=== PATIENT | female | born 1940 | race Caucasian/White ===

== ENCOUNTER 2016-07-04 16:16 | Inpatient (IN) | payer MEDICARE, OTHER ==
[~2016-07-04] VITALS: Ht 160 cm; Wt 45.0 kg
[~2016-07-04 16:16] MED LIST: CHOL100013 PO; CLOP75TA PO; CRESTOR10 MG PO; FELO10TA PO; MAGN400T22 PO; MULT-658 PO; OLME40TA PO; OMEG1CAP38 PO; UBID1CAP23 PO
[2016-07-04 18:15] LABS: BASO % 1 % (0-3); EOS % 2 % (0-3); HEMATOCRIT 29.7 % (36.0-47.0); HEMOGLOBIN 9.5 g/dL (12.0-15.5); LYMPH # 0.5 x10^3/uL (1.0-4.8); LYMPH % 8 % (24-48); MEAN CORPUSCULAR HEMOGLOBIN 28 pg (25-35); MEAN CORPUSCULAR HGB CONC 32 g/dL (31-37); MEAN CORPUSCULAR VOLUME 89 fL (79-100); MONO % 9 % (0-9); NEUT % 79 % (31-73); PLATELET COUNT 345 x10^3/uL (140-400); RED BLOOD COUNT 3.34 x10^6/uL (3.50-5.40); RED CELL DISTRIBUTION WIDTH 20.2 % (11.5-14.5); WHITE BLOOD COUNT 5.7 x10^3/uL (4.0-11.0)
[2016-07-04 18:25] LABS: CALCIUM 8.9 mg/dL (8.5-10.1); CREATININE 0.7 mg/dL (0.6-1.0); GFR 80.9; POTASSIUM 4.9 mmol/L (3.5-5.1)
[2016-07-04 18:31] LABS: ALBUMIN 2.7 g/dL (3.4-5.0); DIRECT BILIRUBIN 0.1 mg/dL (0.0-0.2); TOTAL BILIRUBIN 0.5 mg/dL (0.2-1.0); TOTAL PROTEIN 6.4 g/dL (6.4-8.2)
[2016-07-04] MEDS ORDERED: IPRATRPIUM/ALBUTEROL 0.5/2.5MG 3 ML NEBU. NEB ONE (19:00)
[2016-07-04 19:10] LABS: ANISOCYTOSIS MOD; PLT ESTIMATE ADEQUATE (ADEQUATE); POLYCHROMASIA SLIGHT
--- NOTE | 2016-07-04 19:43 | PHYS DOC ---
Past Medical History Past Medical History: CAD, Cancer, COPD, High Cholesterol, Hypertension, Other Additional Past Medical Histor: BREAST CA,LUNG CANCER, Past Surgical History: Other Additional Past Surgical Histo: PT POOR HISTORIAN Alcohol Use: None Drug Use: None Adult General Chief Complaint Chief Complaint: DYSPNEA/RESPIRATOY DISTRESS HPI HPI 68-year-old female presenting to the emergency department today after being referred here for low oxygen saturation. She has a history of lung cancer and recently received radiation therapy to the chest. She complains of worsening shortness of breath that is worse with exertion. Worse in the morning. No alleviating factors present. Nonradiating. She denies chest pain or abdominal pain. Review of systems is negative for chest pain fevers chills cough. All other review of systems is negative unless otherwise noted in history of present illness. Review of Systems Review of Systems SEE ABOVE. Current Medications Current Medications Current Medications Medications (Trade) Dose Ordered Sig/Eli Start Time Stop Time Status Last Admin Dose Admin Albuterol/ Ipratropium (Duoneb) 3 ml 1X ONCE 07/04/16 19:00 07/04/16 19:01 DC 07/04/16 19:09 3 ML Morphine Sulfate 2 mg PRN Q2HR PRN 07/04/16 19:45 07/05/16 19:44 Ondansetron HCl (Zofran) 4 mg PRN Q8HRS PRN 07/04/16 19:45 07/05/16 19:44 Allergies Allergies Allergies Coded Allergies Type Severity Reaction Last Updated Verified Iodine and Iodide Containing Produc Allergy Intermediate 04/29/16 Yes ampicillin Allergy Intermediate 04/29/16 Yes sulfamethoxazole Allergy Intermediate 04/29/16 Yes trimethoprim Allergy Intermediate 04/29/16 Yes Physical Exam Physical Exam Constitutional: Well developed, well nourished, no acute distress, non-toxic appearance. HENT: Normocephalic, atraumatic, bilateral external ears normal, oropharynx moist, no oral exudates, nose normal. [] Eyes: PERRLA, EOMI, conjunctiva normal, no discharge. Neck: Normal range of motion, no tenderness, supple, no stridor. [] Cardiovascular:Heart rate regular rhythm, no murmur Lungs & Thorax: No wheezing or crackles present. Abdomen: Bowel sounds normal, soft, no tenderness, no masses, no pulsatile masses. [] Skin: Warm, dry, no erythema, no rash. Back: No tenderness, no CVA tenderness. [] Extremities: No tenderness, no cyanosis, no clubbing, ROM intact, no edema. Neurologic: Alert and oriented X 3, normal motor function, normal sensory function, no focal deficits noted. [] Psychologic: Affect normal, judgement normal, mood normal. [] Current Patient Data Vital Signs Vital Signs Date Time Temp Pulse Resp B/P Pulse Ox O2 Delivery O2 Flow Rate FiO2 07/04/16 19:09 96 Nasal Cannula 2.0 07/04/16 16:36 98.5 102 22 171/76 98.5 Lab Values Laboratory Tests Test 07/04/16 17:50 White Blood Count 5.7x10^3/uL (4.0-11.0) Red Blood Count 3.34x10^6/uL (3.50-5.40) L Hemoglobin 9.5g/dL (12.0-15.5) L Hematocrit 29.7% (36.0-47.0) L Mean Corpuscular Volume 89fL (79-100) Mean Corpuscular Hemoglobin 28pg (25-35) Mean Corpuscular Hemoglobin Concent 32g/dL (31-37) Red Cell Distribution Width 20.2% (11.5-14.5) H Platelet Count 345x10^3/uL (140-400) Neutrophils (%) (Auto) 79% (31-73) H Lymphocytes (%) (Auto) 8% (24-48) L Monocytes (%) (Auto) 9% (0-9) Eosinophils (%) (Auto) 2% (0-3) Basophils (%) (Auto) 1% (0-3) Neutrophils # (Auto) 4.5x10^3uL (1.8-7.7) Lymphocytes # (Auto) 0.5x10^3/uL (1.0-4.8) L Monocytes # (Auto) 0.5x10^3/uL (0.0-1.1) Eosinophils # (Auto) 0.1x10^3/uL (0.0-0.7) Basophils # (Auto) 0.0x10^3/uL (0.0-0.2) Platelet Estimate Adequate (ADEQUATE) Polychromasia Slight Anisocytosis Mod Sodium Level 139mmol/L (136-145) Potassium Level 4.9mmol/L (3.5-5.1) Chloride Level 99mmol/L (98-107) Carbon Dioxide Level 35mmol/L (21-32) H Anion Gap 5 (6-14) L Blood Urea Nitrogen 23mg/dL (7-20) H Creatinine 0.7mg/dL (0.6-1.0) Estimated GFR (Cockcroft-Gault) 80.9 Glucose Level 91mg/dL (70-99) Calcium Level 8.9mg/dL (8.5-10.1) Total Bilirubin 0.5mg/dL (0.2-1.0) Direct Bilirubin 0.1mg/dL (0.0-0.2) Aspartate Amino Transferase (AST) 35U/L (15-37) Alanine Aminotransferase (ALT) 49U/L (14-59) Alkaline Phosphatase 75U/L (46-116) Troponin I Quantitative < 0.017ng/mL (0.000-0.055) GN-Pov-P-Type Natriuretic Peptide 2670pg/mL (0-449) H Total Protein 6.4g/dL (6.4-8.2) Albumin 2.7g/dL (3.4-5.0) L Lipase 119U/L (73-393) Laboratory Tests 07/04/16 17:50 Laboratory Tests 07/04/16 17:50 EKG EKG [] EKG shows sinus rhythm with a tachycardic rate. Butler is normal. ST segments congruent. Intervals within normal limits. Radiology/Procedures Radiology/Procedures [] Chest x-ray shows no obvious infiltrate or pneumothorax. Diffuse radiopacification present possibly representing fibrosis Course & Med Decision Making Course & Med Decision Making Pertinent Labs and Imaging studies reviewed. (See chart for details) [] 68-year-old female with a history of lung cancer status post radiation to the chest presents emergency Department with hypoxia seen in clinic and referred here. The patient was placed on 2 L nasal cannula which brought her oxygen saturation up. Otherwise she was hypertensive afebrile with mild tachycardia. Physical exam showed no wheezing in the lungs. Chest x-ray showed no acute infiltrate or pneumothorax. Probable chronic changes. EKG mild tachycardia otherwise unremarkable. Blood work obtained which showed mild anemia elevated proBNP otherwise mildly uremic. Troponin negative. Given the patient's new oxygen requirement, the patient was admitted to our hospital for further evaluation workup and care. Possibly the patient's presentation is consistent with radiation pneumonitis. Oral prednisone administered prior to admission. Dragon Disclaimer Dragon Disclaimer This electronic medical record was generated, in whole or in part, using a voice recognition dictation system. Departure Departure Impression: Primary Impression: Hypoxia Additional Impression: Dyspnea Disposition: ADMITTED INPATIENT Admitting Physician: Other (REUSCH) Condition: STABLE Referrals: RENE MILLIGAN (PCP) Problem Qualifiers CONRADO CHARLTON MD Jul 04, 2016 19:43
[2016-07-04] MEDS ORDERED: ONDANSETRON PF 4 MG/2 ML VIAL. IV PRN (19:45)
[2016-07-04] MEDS ORDERED: MORPHINE SULFATE 2 MG/ML DISP.SYRIN. IV PRN (19:45)
[2016-07-04] MEDS ORDERED: CLOP75TA PO (23:02)
[2016-07-04] MEDS ORDERED: NYST1000 PO (23:03)
[2016-07-04] MEDS ORDERED: ESOM40CA PO (23:04)
[2016-07-04] MEDS ORDERED: OXYC5CAP3 PO (23:04)
[2016-07-04] MEDS ORDERED: LIDO20SO PO (23:06)
[2016-07-04] MEDS ORDERED: FENT1PAT13 TD (23:06)
[2016-07-04] MEDS ORDERED: ALBU2.5V14 NEB (23:07)
[2016-07-04] MEDS ORDERED: ASPI-482 PO (23:08)
[2016-07-04] MEDS ORDERED: CARV3.122 PO (23:08)
[2016-07-04] MEDS ORDERED: IPRA0.2S5 IH (23:10)
[2016-07-04] MEDS ORDERED: SENN-37 PO (23:10)
[2016-07-04] MEDS ORDERED: Magic Mouthwash SWSW (23:15)
[2016-07-04 23:55] VITALS: BP 159/73
[2016-07-05] MEDS: MORPHINE IR 15 MG TABLET PO PRN ×2 (00:22→08:47)
--- NOTE | 2016-07-05 01:32 | HP ---
ADMIT DATE: 07/05/2016 CHIEF COMPLAINT: Hypoxia. HISTORY OF PRESENT ILLNESS: The patient is a 76-year-old woman who had been diagnosed with nonsmall cell lung carcinoma recently and had just completed radiation treatment to her right lower lobe about 4 weeks ago. She has significant swallowing difficulties relating to this with severe pain in her lower side of her sternal area with swallowing. She was seen by her oncologist today and was found significantly hypoxic and therefore referred to the Emergency Room for further workup. The patient relates that she has a bronchitic type cough ever since radiation. However, in the past couple of days, she became more short of breath, especially with minimal exertion. She denies any recent fevers, chills, no sick contacts and no new pain. She has lost significant amounts of weight due to her swallowing difficulties. PAST MEDICAL HISTORY: Nonsmall cell lung carcinoma as above. FAMILY HISTORY: Essentially noncontributory. SOCIAL HISTORY: , living by herself. Quit smoking, children close by. ALLERGIES: IODINE, AMPICILLIN, SULFA AND TRIMETHOPRIM. HOME MEDICATIONS: Reconciled with MAR. REVIEW OF SYSTEMS: Positive as per HPI. Rest of organ system review is negative. PHYSICAL EXAMINATION: VITAL SIGNS: From today show a blood pressure of 137/63, heart rate of 92, respiratory rate at 16, she is afebrile. GENERAL: This is a 76-year-old, malnourished appearing woman, alert and oriented, no acute distress, very pleasant. HEENT: Shows no scleral icterus. LUNGS: Clear to auscultation bilaterally without any rales or wheezes. HEART: Regular rate and rhythm. ABDOMEN: Positive bowel sounds, soft, nontender. EXTREMITIES: Show no edema. SKIN: Warm, soft and dry without any rash. LABORATORY DATA: CBC from today show a WBC of 5.7, hemoglobin 9.5 and platelets of 345, BUN and creatinine of 23 and 0.7, normal electrolytes, CO2 at 35. ProBNP 2670. Initial troponin is negative. Albumin at 2.7. Chest x-ray obtained tonight and interpreted by myself shows mild reticular haziness over the right lower half of her lungs. ASSESSMENT AND PLAN: The patient is a 76-year-old woman with nonsmall cell lung carcinoma, recently completed radiation to her right lower lobe, now presenting with hypoxia. Her cough, this may be a bronchitis. She relates that she actually had been on a steroid taper and just finished her last dose yesterday. My suspicion, however, is that this may be radiation pneumonitis. We will start her on steroids and monitor her respiratory status lipids. We will consult Dr. Mcnally for further guidance A main issue; however, is her poor p.o. intake with significant weight loss. I have discussed with her that she needs to increase her p.o. intake significantly. Pain which I suspect is secondary to radiation is keeping her from eating solids, she will have to replace this with liquid or soft supplements such as Boost Breeze or puddings 5-6 a day would be the appropriate amount. For her pain, the oxycodone 10 that she has been taking at home does not seem to too sufficient control. We will switch her to MS-IR 15 mg. She also has a fentanyl 12 mcg per hour patch. Prophylaxis will be instituted with Lovenox. PPI will be necessary given the use of steroids. WILLI AGUAYO MD DR: JOLLY/nts JOB#: [id number] / [id number] OSIRIS
[2016-07-05 03:15] VITALS: BP 131/62
[2016-07-05 05:51] LABS: BASO % 1 % (0-3); EOS % 5 % (0-3); HEMATOCRIT 25.7 % (36.0-47.0); HEMOGLOBIN 8.6 g/dL (12.0-15.5); LYMPH # 0.6 x10^3/uL (1.0-4.8); LYMPH % 15 % (24-48); MEAN CORPUSCULAR HEMOGLOBIN 29 pg (25-35); MEAN CORPUSCULAR HGB CONC 33 g/dL (31-37); MEAN CORPUSCULAR VOLUME 86 fL (79-100); MONO % 13 % (0-9); NEUT % 66 % (31-73); PLATELET COUNT 310 x10^3/uL (140-400); RED BLOOD COUNT 2.98 x10^6/uL (3.50-5.40); RED CELL DISTRIBUTION WIDTH 20.4 % (11.5-14.5); WHITE BLOOD COUNT 4.4 x10^3/uL (4.0-11.0)
[2016-07-05 06:01] LABS: CALCIUM 8.5 mg/dL (8.5-10.1); CREATININE 0.6 mg/dL (0.6-1.0); GFR 96.7; POTASSIUM 4.2 mmol/L (3.5-5.1)
--- NOTE | 2016-07-05 06:39 | EKG ---
[facility] [address] [place] [address] Test Date: 2016-07-04 Test Time: 17:00:27 Pat Name: BARTOLO OROZCO Department: Room: [facility] Gender: F Evp [place]: : 1940 Requested By: CONRADO CHARLTON Order Number: [id number] Reading MD: Lloyd Strange Measurements Intervals [place] Rate: 96 P: 51 CA: 134 QRS: 0 QRSD: 94 T: 79 QT: 324 QTc: 410 Interpretive Statements SINUS RHYTHM LEFT ATRIAL ABNORMALITY LEFTWARD AXIS QRS(T) CONTOUR ABNORMALITY CONSIDER ANTEROSEPTAL MYOCARDIAL DAMAGE T ABNORMALITY IN HIGH LATERAL LEADS Electronically Signed On 07-21-2016 14:32:05 GAUGE INSPECTOR by Lloyd Strange
[2016-07-05 07:00] VITALS: BP 146/77
--- NOTE | 2016-07-05 07:08 | PDOC ---
PULMONARY PROGRESS NOTES Vitals Vital Signs Date Time Temp Pulse Resp B/P Pulse Ox O2 Delivery O2 Flow Rate FiO2 07/05/16 03:15 98.4 81 18 131/62 97 Nasal Cannula 2.0 98.4 Lungs: Clear Cardiovascular: S1, S2 Abdomen: Soft Extremities: No Edema Labs Laboratory Tests Test 07/04/16 17:50 07/05/16 04:03 White Blood Count 5.7x10^3/uL (4.0-11.0) 4.4x10^3/uL (4.0-11.0) Red Blood Count 3.34x10^6/uL (3.50-5.40) 2.98x10^6/uL (3.50-5.40) Hemoglobin 9.5g/dL (12.0-15.5) 8.6g/dL (12.0-15.5) Hematocrit 29.7% (36.0-47.0) 25.7% (36.0-47.0) Mean Corpuscular Volume 89fL (79-100) 86fL (79-100) Mean Corpuscular Hemoglobin 28pg (25-35) 29pg (25-35) Mean Corpuscular Hemoglobin Concent 32g/dL (31-37) 33g/dL (31-37) Red Cell Distribution Width 20.2% (11.5-14.5) 20.4% (11.5-14.5) Platelet Count 345x10^3/uL (140-400) 310x10^3/uL (140-400) Neutrophils (%) (Auto) 79% (31-73) 66% (31-73) Lymphocytes (%) (Auto) 8% (24-48) 15% (24-48) Monocytes (%) (Auto) 9% (0-9) 13% (0-9) Eosinophils (%) (Auto) 2% (0-3) 5% (0-3) Basophils (%) (Auto) 1% (0-3) 1% (0-3) Neutrophils # (Auto) 4.5x10^3uL (1.8-7.7) 2.9x10^3uL (1.8-7.7) Lymphocytes # (Auto) 0.5x10^3/uL (1.0-4.8) 0.6x10^3/uL (1.0-4.8) Monocytes # (Auto) 0.5x10^3/uL (0.0-1.1) 0.6x10^3/uL (0.0-1.1) Eosinophils # (Auto) 0.1x10^3/uL (0.0-0.7) 0.2x10^3/uL (0.0-0.7) Basophils # (Auto) 0.0x10^3/uL (0.0-0.2) 0.0x10^3/uL (0.0-0.2) Platelet Estimate Adequate (ADEQUATE) Polychromasia Slight Anisocytosis Mod Sodium Level 139mmol/L (136-145) 138mmol/L (136-145) Potassium Level 4.9mmol/L (3.5-5.1) 4.2mmol/L (3.5-5.1) Chloride Level 99mmol/L (98-107) 100mmol/L (98-107) Carbon Dioxide Level 35mmol/L (21-32) 34mmol/L (21-32) Anion Gap 5 (6-14) 4 (6-14) Blood Urea Nitrogen 23mg/dL (7-20) 17mg/dL (7-20) Creatinine 0.7mg/dL (0.6-1.0) 0.6mg/dL (0.6-1.0) Estimated GFR (Cockcroft-Gault) 80.9 96.7 Glucose Level 91mg/dL (70-99) 92mg/dL (70-99) Calcium Level 8.9mg/dL (8.5-10.1) 8.5mg/dL (8.5-10.1) Total Bilirubin 0.5mg/dL (0.2-1.0) Direct Bilirubin 0.1mg/dL (0.0-0.2) Aspartate Amino Transf (AST/SGOT) 35U/L (15-37) Alanine Aminotransferase (ALT/SGPT) 49U/L (14-59) Alkaline Phosphatase 75U/L (46-116) Troponin I Quantitative < 0.017ng/mL (0.000-0.055) QB-Gpz-I-Type Natriuretic Peptide 2670pg/mL (0-449) Total Protein 6.4g/dL (6.4-8.2) Albumin 2.7g/dL (3.4-5.0) Lipase 119U/L (73-393) Laboratory Tests Test 07/04/16 17:50 07/05/16 04:03 White Blood Count 5.7x10^3/uL (4.0-11.0) 4.4x10^3/uL (4.0-11.0) Red Blood Count 3.34x10^6/uL (3.50-5.40) 2.98x10^6/uL (3.50-5.40) Hemoglobin 9.5g/dL (12.0-15.5) 8.6g/dL (12.0-15.5) Hematocrit 29.7% (36.0-47.0) 25.7% (36.0-47.0) Mean Corpuscular Volume 89fL (79-100) 86fL (79-100) Mean Corpuscular Hemoglobin 28pg (25-35) 29pg (25-35) Mean Corpuscular Hemoglobin Concent 32g/dL (31-37) 33g/dL (31-37) Red Cell Distribution Width 20.2% (11.5-14.5) 20.4% (11.5-14.5) Platelet Count 345x10^3/uL (140-400) 310x10^3/uL (140-400) Neutrophils (%) (Auto) 79% (31-73) 66% (31-73) Lymphocytes (%) (Auto) 8% (24-48) 15% (24-48) Monocytes (%) (Auto) 9% (0-9) 13% (0-9) Eosinophils (%) (Auto) 2% (0-3) 5% (0-3) Basophils (%) (Auto) 1% (0-3) 1% (0-3) Neutrophils # (Auto) 4.5x10^3uL (1.8-7.7) 2.9x10^3uL (1.8-7.7) Lymphocytes # (Auto) 0.5x10^3/uL (1.0-4.8) 0.6x10^3/uL (1.0-4.8) Monocytes # (Auto) 0.5x10^3/uL (0.0-1.1) 0.6x10^3/uL (0.0-1.1) Eosinophils # (Auto) 0.1x10^3/uL (0.0-0.7) 0.2x10^3/uL (0.0-0.7) Basophils # (Auto) 0.0x10^3/uL (0.0-0.2) 0.0x10^3/uL (0.0-0.2) Platelet Estimate Adequate (ADEQUATE) Polychromasia Slight Anisocytosis Mod Sodium Level 139mmol/L (136-145) 138mmol/L (136-145) Potassium Level 4.9mmol/L (3.5-5.1) 4.2mmol/L (3.5-5.1) Chloride Level 99mmol/L (98-107) 100mmol/L (98-107) Carbon Dioxide Level 35mmol/L (21-32) 34mmol/L (21-32) Anion Gap 5 (6-14) 4 (6-14) Blood Urea Nitrogen 23mg/dL (7-20) 17mg/dL (7-20) Creatinine 0.7mg/dL (0.6-1.0) 0.6mg/dL (0.6-1.0) Estimated GFR (Cockcroft-Gault) 80.9 96.7 Glucose Level 91mg/dL (70-99) 92mg/dL (70-99) Calcium Level 8.9mg/dL (8.5-10.1) 8.5mg/dL (8.5-10.1) Total Bilirubin 0.5mg/dL (0.2-1.0) Direct Bilirubin 0.1mg/dL (0.0-0.2) Aspartate Amino Transf (AST/SGOT) 35U/L (15-37) Alanine Aminotransferase (ALT/SGPT) 49U/L (14-59) Alkaline Phosphatase 75U/L (46-116) Troponin I Quantitative < 0.017ng/mL (0.000-0.055) FG-Fij-Y-Type Natriuretic Peptide 2670pg/mL (0-449) Total Protein 6.4g/dL (6.4-8.2) Albumin 2.7g/dL (3.4-5.0) Lipase 119U/L (73-393) Medications Active Scripts Medications Dose Route/Sig Days Date Category [Magic Mouthwash] 10 Ml SWSW TID PRN 07/04/16 Reported Senokot-S Tablet (Sennosides/Docusate Sodium) 1 Each Tablet 1 Each PO BID PRN 07/04/16 Reported Ipratropium Prim 0.2 Mg/1 Ml Solution 0.2 Mg IH PRN TID PRN 07/04/16 Reported Aspir 81 (Aspirin) 81 Mg Tablet.dr 81 Mg PO DAILY 07/04/16 Reported Carvedilol 3.125 Mg Tablet 3.125 Mg PO BIDWMEALS 07/04/16 Reported Albuterol Sulfate Conc Neb Soln (Albuterol Sulfate) 2.5 Mg/0.5 Ml Vial.neb 2.5 Mg NEB PRN Q4HRS PRN 07/04/16 Reported FENTANYL 12mcg/hr (Fentanyl) 1 Each Patch.td72 1 Patch TD Q72H 07/04/16 Reported Lidocaine Hcl Viscous (Lidocaine Hcl) 20 Mg/1 Ml Solution 10 Ml PO PRN Q2HRS PRN 07/04/16 Reported Nexium Capsule (Esomeprazole Magnesium) 40 Mg Capsule.dr 40 Mg PO BID 07/04/16 Reported Oxycodone Hcl 5 Mg Capsule 5 Mg PO PRN Q4HRS PRN 07/04/16 Reported Nystatin 100,000 Unit/1 Ml Oral.susp 5 Ml PO QID 07/04/16 Reported Clopidogrel (Clopidogrel Bisulfate) 75 Mg Tablet 75 Mg PO DAILY 07/04/16 Reported Vitamin D (Cholecalciferol (Vitamin D3)) 1,000 Unit Capsule 1 Cap PO DAILY 04/25/16 Reported Crestor (Rosuvastatin Calcium) 10 Mg Tablet 1 Tab PO DAILY 04/25/16 Reported Impression . FULL CONSULT DICTATED AECOPD RULE OUT PE SEE ORDERS THANKS KELSI YOUSSEF MD Jul 05, 2016 07:08
--- NOTE | 2016-07-05 08:30 | RAD ---
INDICATION: chest pain COMPARISON: 04/24/2016 FINDINGS: Single view of chest obtained. Coarsened lung markings throughout the bilateral lungs is again seen. Calcific atherosclerosis. Scoliotic curvature of the spine IMPRESSION: Repeat demonstration of coarsened lung markings throughout the bilateral lungs. A large portion of this is likely secondary to chronic lung disease. No definite focal infiltrate.
[2016-07-05] MEDS: PANTOPRAZOLE 40 MG TABLET. PO SCH (08:47)
[2016-07-05] MEDS: methylPREDNISolone SOD SUCC PF 125 MG/2 ML VIAL. IV SCH ×2 (08:48→21:15)
[2016-07-05] MEDS: IV 1/2 NORMAL SALINE 1,000 ML IV SCH ×2 (08:49→21:15)
[2016-07-05] MEDS ORDERED: PREDNISONE 20 MG TABLET PO SCH (09:00)
[2016-07-05 10:10] LABS: OBC FLU VALID
[2016-07-05 11:00] VITALS: BP 122/59
--- NOTE | 2016-07-05 11:37 | PDOC ---
PROGRESS NOTES Chief Complaint Chief Complaint CC: Hypoxia 1. Non-small cell lung carcinoma History of Present Illness History of Present Illness Pt lying in bed Pt sees oncologist at Pt said she has completed her radiation therapy and the last dose was 4 weeks ago to R lower lobe VSS DW RN Vitals Vitals Vital Signs Date Time Temp Pulse Resp B/P Pulse Ox O2 Delivery O2 Flow Rate FiO2 07/05/16 11:00 98.3 86 18 122/59 96 Nasal Cannula 2.0 98.3 Physical Exam General: Alert, Oriented X3 Heart: Regular rate, No murmurs Lungs: Crackles, Other (Course breath sounds) Abdomen: Soft, No tenderness Extremities: No cyanosis, No edema Skin: No rashes, No breakdown Labs LABS Laboratory Tests Test 07/04/16 17:50 07/05/16 04:03 07/05/16 09:40 White Blood Count 5.7x10^3/uL (4.0-11.0) 4.4x10^3/uL (4.0-11.0) Red Blood Count 3.34x10^6/uL (3.50-5.40) 2.98x10^6/uL (3.50-5.40) Hemoglobin 9.5g/dL (12.0-15.5) 8.6g/dL (12.0-15.5) Hematocrit 29.7% (36.0-47.0) 25.7% (36.0-47.0) Mean Corpuscular Volume 89fL (79-100) 86fL (79-100) Mean Corpuscular Hemoglobin 28pg (25-35) 29pg (25-35) Mean Corpuscular Hemoglobin Concent 32g/dL (31-37) 33g/dL (31-37) Red Cell Distribution Width 20.2% (11.5-14.5) 20.4% (11.5-14.5) Platelet Count 345x10^3/uL (140-400) 310x10^3/uL (140-400) Neutrophils (%) (Auto) 79% (31-73) 66% (31-73) Lymphocytes (%) (Auto) 8% (24-48) 15% (24-48) Monocytes (%) (Auto) 9% (0-9) 13% (0-9) Eosinophils (%) (Auto) 2% (0-3) 5% (0-3) Basophils (%) (Auto) 1% (0-3) 1% (0-3) Neutrophils # (Auto) 4.5x10^3uL (1.8-7.7) 2.9x10^3uL (1.8-7.7) Lymphocytes # (Auto) 0.5x10^3/uL (1.0-4.8) 0.6x10^3/uL (1.0-4.8) Monocytes # (Auto) 0.5x10^3/uL (0.0-1.1) 0.6x10^3/uL (0.0-1.1) Eosinophils # (Auto) 0.1x10^3/uL (0.0-0.7) 0.2x10^3/uL (0.0-0.7) Basophils # (Auto) 0.0x10^3/uL (0.0-0.2) 0.0x10^3/uL (0.0-0.2) Platelet Estimate Adequate (ADEQUATE) Polychromasia Slight Anisocytosis Mod Sodium Level 139mmol/L (136-145) 138mmol/L (136-145) Potassium Level 4.9mmol/L (3.5-5.1) 4.2mmol/L (3.5-5.1) Chloride Level 99mmol/L (98-107) 100mmol/L (98-107) Carbon Dioxide Level 35mmol/L (21-32) 34mmol/L (21-32) Anion Gap 5 (6-14) 4 (6-14) Blood Urea Nitrogen 23mg/dL (7-20) 17mg/dL (7-20) Creatinine 0.7mg/dL (0.6-1.0) 0.6mg/dL (0.6-1.0) Estimated GFR (Cockcroft-Gault) 80.9 96.7 Glucose Level 91mg/dL (70-99) 92mg/dL (70-99) Calcium Level 8.9mg/dL (8.5-10.1) 8.5mg/dL (8.5-10.1) Total Bilirubin 0.5mg/dL (0.2-1.0) Direct Bilirubin 0.1mg/dL (0.0-0.2) Aspartate Amino Transf (AST/SGOT) 35U/L (15-37) Alanine Aminotransferase (ALT/SGPT) 49U/L (14-59) Alkaline Phosphatase 75U/L (46-116) Troponin I Quantitative < 0.017ng/mL (0.000-0.055) ZE-Fsk-I-Type Natriuretic Peptide 2670pg/mL (0-449) Total Protein 6.4g/dL (6.4-8.2) Albumin 2.7g/dL (3.4-5.0) Lipase 119U/L (73-393) Influenza Type A Antigen Negative (NEGATIVE) Influenza Type B Antigen Negative (NEGATIVE) Review of Systems Review of Systems Complains of cough Complains of pain with swallowing Assessment and Plan Assessmemt and Plan Problems Medical Problems: (1) Dyspnea Status: Acute (2) Hypoxia Status: Acute Assessment: CC: Hypoxia 1. Non-small cell lung carcinoma 2. Possible radiation pneumonitis Plan: Continue pain medications Continue steroids, nebs Continue IV fluids Heme/Onc is following Pulm is following Await subspecialty input Prophylaxis - Lovenox, PPI Problems: Comment Review of Relevant I have reviewed the following items mateo (where applicable) has been applied. Labs Laboratory Tests Test 07/04/16 17:50 07/05/16 04:03 07/05/16 09:40 White Blood Count 5.7x10^3/uL (4.0-11.0) 4.4x10^3/uL (4.0-11.0) Red Blood Count 3.34x10^6/uL (3.50-5.40) 2.98x10^6/uL (3.50-5.40) Hemoglobin 9.5g/dL (12.0-15.5) 8.6g/dL (12.0-15.5) Hematocrit 29.7% (36.0-47.0) 25.7% (36.0-47.0) Mean Corpuscular Volume 89fL (79-100) 86fL (79-100) Mean Corpuscular Hemoglobin 28pg (25-35) 29pg (25-35) Mean Corpuscular Hemoglobin Concent 32g/dL (31-37) 33g/dL (31-37) Red Cell Distribution Width 20.2% (11.5-14.5) 20.4% (11.5-14.5) Platelet Count 345x10^3/uL (140-400) 310x10^3/uL (140-400) Neutrophils (%) (Auto) 79% (31-73) 66% (31-73) Lymphocytes (%) (Auto) 8% (24-48) 15% (24-48) Monocytes (%) (Auto) 9% (0-9) 13% (0-9) Eosinophils (%) (Auto) 2% (0-3) 5% (0-3) Basophils (%) (Auto) 1% (0-3) 1% (0-3) Neutrophils # (Auto) 4.5x10^3uL (1.8-7.7) 2.9x10^3uL (1.8-7.7) Lymphocytes # (Auto) 0.5x10^3/uL (1.0-4.8) 0.6x10^3/uL (1.0-4.8) Monocytes # (Auto) 0.5x10^3/uL (0.0-1.1) 0.6x10^3/uL (0.0-1.1) Eosinophils # (Auto) 0.1x10^3/uL (0.0-0.7) 0.2x10^3/uL (0.0-0.7) Basophils # (Auto) 0.0x10^3/uL (0.0-0.2) 0.0x10^3/uL (0.0-0.2) Platelet Estimate Adequate (ADEQUATE) Polychromasia Slight Anisocytosis Mod Sodium Level 139mmol/L (136-145) 138mmol/L (136-145) Potassium Level 4.9mmol/L (3.5-5.1) 4.2mmol/L (3.5-5.1) Chloride Level 99mmol/L (98-107) 100mmol/L (98-107) Carbon Dioxide Level 35mmol/L (21-32) 34mmol/L (21-32) Anion Gap 5 (6-14) 4 (6-14) Blood Urea Nitrogen 23mg/dL (7-20) 17mg/dL (7-20) Creatinine 0.7mg/dL (0.6-1.0) 0.6mg/dL (0.6-1.0) Estimated GFR (Cockcroft-Gault) 80.9 96.7 Glucose Level 91mg/dL (70-99) 92mg/dL (70-99) Calcium Level 8.9mg/dL (8.5-10.1) 8.5mg/dL (8.5-10.1) Total Bilirubin 0.5mg/dL (0.2-1.0) Direct Bilirubin 0.1mg/dL (0.0-0.2) Aspartate Amino Transf (AST/SGOT) 35U/L (15-37) Alanine Aminotransferase (ALT/SGPT) 49U/L (14-59) Alkaline Phosphatase 75U/L (46-116) Troponin I Quantitative < 0.017ng/mL (0.000-0.055) GV-Htn-H-Type Natriuretic Peptide 2670pg/mL (0-449) Total Protein 6.4g/dL (6.4-8.2) Albumin 2.7g/dL (3.4-5.0) Lipase 119U/L (73-393) Influenza Type A Antigen Negative (NEGATIVE) Influenza Type B Antigen Negative (NEGATIVE) Laboratory Tests Test 07/04/16 17:50 07/05/16 04:03 07/05/16 09:40 White Blood Count 5.7x10^3/uL (4.0-11.0) 4.4x10^3/uL (4.0-11.0) Red Blood Count 3.34x10^6/uL (3.50-5.40) 2.98x10^6/uL (3.50-5.40) Hemoglobin 9.5g/dL (12.0-15.5) 8.6g/dL (12.0-15.5) Hematocrit 29.7% (36.0-47.0) 25.7% (36.0-47.0) Mean Corpuscular Volume 89fL (79-100) 86fL (79-100) Mean Corpuscular Hemoglobin 28pg (25-35) 29pg (25-35) Mean Corpuscular Hemoglobin Concent 32g/dL (31-37) 33g/dL (31-37) Red Cell Distribution Width 20.2% (11.5-14.5) 20.4% (11.5-14.5) Platelet Count 345x10^3/uL (140-400) 310x10^3/uL (140-400) Neutrophils (%) (Auto) 79% (31-73) 66% (31-73) Lymphocytes (%) (Auto) 8% (24-48) 15% (24-48) Monocytes (%) (Auto) 9% (0-9) 13% (0-9) Eosinophils (%) (Auto) 2% (0-3) 5% (0-3) Basophils (%) (Auto) 1% (0-3) 1% (0-3) Neutrophils # (Auto) 4.5x10^3uL (1.8-7.7) 2.9x10^3uL (1.8-7.7) Lymphocytes # (Auto) 0.5x10^3/uL (1.0-4.8) 0.6x10^3/uL (1.0-4.8) Monocytes # (Auto) 0.5x10^3/uL (0.0-1.1) 0.6x10^3/uL (0.0-1.1) Eosinophils # (Auto) 0.1x10^3/uL (0.0-0.7) 0.2x10^3/uL (0.0-0.7) Basophils # (Auto) 0.0x10^3/uL (0.0-0.2) 0.0x10^3/uL (0.0-0.2) Platelet Estimate Adequate (ADEQUATE) Polychromasia Slight Anisocytosis Mod Sodium Level 139mmol/L (136-145) 138mmol/L (136-145) Potassium Level 4.9mmol/L (3.5-5.1) 4.2mmol/L (3.5-5.1) Chloride Level 99mmol/L (98-107) 100mmol/L (98-107) Carbon Dioxide Level 35mmol/L (21-32) 34mmol/L (21-32) Anion Gap 5 (6-14) 4 (6-14) Blood Urea Nitrogen 23mg/dL (7-20) 17mg/dL (7-20) Creatinine 0.7mg/dL (0.6-1.0) 0.6mg/dL (0.6-1.0) Estimated GFR (Cockcroft-Gault) 80.9 96.7 Glucose Level 91mg/dL (70-99) 92mg/dL (70-99) Calcium Level 8.9mg/dL (8.5-10.1) 8.5mg/dL (8.5-10.1) Total Bilirubin 0.5mg/dL (0.2-1.0) Direct Bilirubin 0.1mg/dL (0.0-0.2) Aspartate Amino Transf (AST/SGOT) 35U/L (15-37) Alanine Aminotransferase (ALT/SGPT) 49U/L (14-59) Alkaline Phosphatase 75U/L (46-116) Troponin I Quantitative < 0.017ng/mL (0.000-0.055) WO-Gcp-M-Type Natriuretic Peptide 2670pg/mL (0-449) Total Protein 6.4g/dL (6.4-8.2) Albumin 2.7g/dL (3.4-5.0) Lipase 119U/L (73-393) Influenza Type A Antigen Negative (NEGATIVE) Influenza Type B Antigen Negative (NEGATIVE) Medications Current Medications Albuterol/ Ipratropium (Duoneb) 3 ml 1X ONCE NEB Last administered on 19:09; Start 07/04/16 at 19:00; Stop 07/04/16 at 19:01; Status DC Ondansetron HCl (Zofran) 4 mg PRN Q8HRS PRN IV NAUSEA/VOMITING; Start 07/04/16 at 19:45; Stop 07/05/16 at 19:44 Morphine Sulfate 2 mg PRN Q2HR PRN IV PAIN; Start 07/04/16 at 19:45; Stop 07/05 at 19:44 Prednisone (Prednisone) 20 mg DAILY PO ; Start 07/05/16 at 09:00; Stop 07/05/16 at 09:00; Status DC Pantoprazole Sodium (Protonix) 40 mg DAILYAC PO Last administered on 07/05/16 08:47; Start 07/05/16 at 07:30 Morphine Sulfate 15 mg 15 mg PRN Q4HRS PRN PO PAIN Last administered on 08:47; Start 07/04/16 at 23:45 Sodium Chloride (Iv Sodium Chloride 0.45%) 1,000 ml @ 75 mls/hr [id number] IV Last administered on 07/05/16 08:49; Start 07/05/16 at 07:15 Methylprednisolone Sodium Succinate (Solu-Medrol 125mg Vial) 60 mg BID IV Last administered on 07/05/16 08:48; Start 07/05/16 at 09:00 Active Scripts Active Reported [Magic Mouthwash] 10 Ml SWSW TID PRN Senokot-S Tablet (Sennosides/Docusate Sodium) 1 Each Tablet 1 Each PO BID PRN Ipratropium [place] 0.2 Mg/1 Ml Solution 0.2 Mg IH PRN TID PRN Aspir 81 (Aspirin) 81 Mg Tablet.dr 81 Mg PO DAILY Carvedilol 3.125 Mg Tablet 3.125 Mg PO BIDWMEALS Albuterol Sulfate Conc Neb Soln (Albuterol Sulfate) 2.5 Mg/0.5 Ml Vial.neb 2.5 Mg NEB PRN Q4HRS PRN FENTANYL 12mcg/hr (Fentanyl) 1 Each Patch.td72 1 Patch TD Q72H Lidocaine Hcl Viscous (Lidocaine Hcl) 20 Mg/1 Ml Solution 10 Ml PO PRN Q2HRS PRN Nexium Capsule (Esomeprazole Magnesium) 40 Mg Capsule.dr 40 Mg PO BID Oxycodone Hcl 5 Mg Capsule 5 Mg PO PRN Q4HRS PRN Nystatin 100,000 Unit/1 Ml Oral.susp 5 Ml PO QID Clopidogrel (Clopidogrel Bisulfate) 75 Mg Tablet 75 Mg PO DAILY Vitamin D (Cholecalciferol (Vitamin D3)) 1,000 Unit Capsule 1 Cap PO DAILY Crestor (Rosuvastatin Calcium) 10 Mg Tablet 1 Tab PO DAILY Vitals/I & O Vital Sign - Last 24 Hours 07/04/16 07/04/16 07/04/16 07/04/16 16:36 17:30 18:38 19:09 Temp 98.5 98.5 Pulse 102 100 96 Resp 22 16 16 B/P 171/76 155/75 149/70 Pulse Ox 99 100 96 96 O2 Delivery Nasal Cannula Nasal Cannula Nasal Cannula Nasal Cannula O2 Flow Rate 2 2 2 2.0 07/04/16 07/04/16 07/04/16 07/04/16 19:38 20:38 21:38 23:55 Temp 98.5 98.5 Pulse 96 96 92 91 Resp 16 16 16 18 B/P 142/64 122/55 137/63 159/73 Pulse Ox 100 98 98 97 O2 Delivery Nasal Cannula Nasal Cannula Nasal Cannula Room Air O2 Flow Rate 2 2 2 07/04/16 07/05/16 07/05/16 07/05/16 23:55 00:22 01:07 03:15 Temp 98.5 98.4 98.5 98.4 Pulse 91 81 Resp 18 18 B/P 159/73 131/62 Pulse Ox 97 97 O2 Delivery Nasal Cannula Nasal Cannula Nasal Cannula Nasal Cannula O2 Flow Rate 2.0 2.0 2.0 2.0 07/05/16 07/05/16 07/05/16 07/05/16 07:00 08:47 09:47 11:00 Temp 98.3 98.3 98.3 98.3 Pulse 87 86 Resp 18 B/P 146/77 122/59 Pulse Ox 96 96 96 96 O2 Delivery Nasal Cannula Nasal Cannula Nasal Cannula O2 Flow Rate 2.0 2.0 2.0 Intake and Output 07/04/16 07/04/16 07/05/16 15:00 23:00 07:00 Intake Total 100 ml Balance 100 ml CASTMARTA,NIAL K III DO Jul 05, 2016 11:37
[2016-07-05] MEDS: MORPHINE SULFATE 4 MG/ML DISP.SYRIN. IV PRN ×2 (12:55→15:16)
[2016-07-05] MEDS ORDERED: FENTANYL 25MCG/HR PATCH. TD SCH (13:00)
--- NOTE | 2016-07-05 14:09 | RAD ---
INDICATION: SHORTNESS OF AIR, HYPOXIA COMPARISON: 07/04/2016 TECHNIQUE: 5.5 mCi of Tc99m MAA and 12 mCi of Xe-133 administered and ventilation as well as perfusion images were obtained. FINDINGS: There is some patchy defects seen within the bilateral lungs. No definite mismatch defects are seen on the anterior or posterior images but some of the defects are only well seen on the oblique and lateral imaging therefore cannot evaluate whether they are matched or not on ventilation. IMPRESSION: Overall intermediate probability of pulmonary embolus.
[2016-07-05 15:00] VITALS: BP 122/62
[2016-07-05] MEDS ORDERED: BISACODYL 10 MG SUPP.RECT PR PRN (18:15)
[2016-07-05] MEDS: HYDROMORPHONE 2 MG/ML VIAL. IV PRN ×2 (18:18→21:16)
[2016-07-05 19:05] VITALS: BP 115/62
[2016-07-05] MEDS ORDERED: MAGN400T3 PO (22:07)
[2016-07-05] MEDS ORDERED: OXYCODONE IR 5 MG TABLET. PO PRN (22:15)
[2016-07-05] MEDS ORDERED: MAGIC MOUTHWASH SWSW PRN (22:15)
[2016-07-05] MEDS ORDERED: NON FORMULARY ITEM (Albuterol Sulfate (Albuterol Sulfate Conc Neb Soln) 2.5 MG) NEB PRN (22:15)
[2016-07-05] MEDS ORDERED: LIDOCAINE 2% VISCOUS 100 ML BOTTLE. MC PRN (22:15)
[2016-07-05] MEDS ORDERED: ALBUTEROL SULFATE 2.5 MG/3 ML NEBU. NEB PRN (22:45)
[2016-07-05 23:05] VITALS: BP 141/80
--- NOTE | 2016-07-06 01:33 | CONS ---
DATE OF CONSULTATION: 07/05/2016 ATTENDING PHYSICIAN: Dr. Gates. REASON FOR CONSULTATION: The patient seen in pulmonary consultation at the request of Dr. Gates for hypoxemia, shortness of air and history of lung cancer. HISTORY OF PRESENT ILLNESS: The patient is a 76-year-old female who is known to me from a previous hospitalization. She was hospitalized back in April. At that time, she had an abnormal CT of the chest revealing 2 spiculated masses on the right side. She was scheduled to undergo a VATS with lymph node sampling. The patient was on Plavix at that time. Plavix was discontinued. She was due to follow up in the outpatient department. For some reason why the patient presented to [facility], was worked up and diagnosed with nonsmall cell lung cancer. She underwent radiation therapy. She completed radiation to the right lower lobe approximately 4 weeks ago. She presented with difficulty swallowing, desaturation. I was asked to see her in consultation. The patient has a cough, mostly nonproductive. She denies fever, chills. No nausea, vomiting, diarrhea. She is having some weight loss secondary to difficulty with dysphagia. PAST MEDICAL HISTORY: 1. Nonsmall cell lung cancer as diagnosed above. 2. Peripheral vascular disease. 3. Coronary artery disease with low EF. 4. COPD. 5. Carotid stenosis. PAST SURGICAL HISTORY: Status post carotid thrombectomy. SOCIAL HISTORY: She quit tobacco approximately 3-4 months ago. Denies any alcohol intake. REVIEW OF SYSTEMS: As indicated above, otherwise, a 10-point system was reviewed and negative. The patient has awakened multiple times throughout the night short of air for no good reason. She denies any pleuritic pain, no syncope or near syncopal episode. ALLERGIES: Iodine, ampicillin, sulfamethoxazole and trimethoprim. CURRENT MEDICATION: List was reviewed. PHYSICAL EXAMINATION: VITAL SIGNS: Stable. O2 saturation was greater than 92%. HEENT: Eyes, the sclerae were nonicteric. NECK: Jugular venous distention was not elevated. No lymphadenopathy. CHEST: Full expansion. LUNGS: Rhonchi bilaterally with mild wheezes. CARDIOVASCULAR: Regular rate and rhythm with S1, S2, no S3. ABDOMEN: Soft, nontender, and nondistended. EXTREMITIES: No clubbing, cyanosis or edema. NEUROLOGIC: The patient was awake, alert, following commands. A detailed neuro exam was not performed. LABORATORY DATA: White count was normal. Hemoglobin and hematocrit were low. Electrolytes were noted. BUN was normal. Creatinine was normal. BNP was elevated. Albumin upon admission was low. IMPRESSION: 1. Acute respiratory failure, etiology unclear, suspect secondary to acute exacerbation of chronic obstructive pulmonary disease, rule out pulmonary embolus. 2. Recent diagnosis of nonsmall cell lung cancer, status post radiation to the right lower lobe, staging is unknown at this time. 3. Radiation-induced esophagitis leading to dysphagia. 4. Tjxsqcpe-cn-pbfrka protein malnutrition secondary to above. 5. Chronic anemia. 6. Coronary artery disease with low ejection fraction. PLAN: 1. Recommend continue current steroids and IV Protonix. 2. Initiate IV fluids. 3. CT angiogram to rule out PE. 4. A 6-minute walk prior to discharge. 5. Continue nebulized treatments. I do appreciate the privilege in sharing in the patient's care. KELSI YOUSSEF MD DR: MADISYN/yonathan JOB#: [id number] / [id number]
[2016-07-06 03:05] VITALS: BP 113/74
[2016-07-06] MEDS: PANTOPRAZOLE 40 MG TABLET. PO SCH ×4 (05:33→17:33)
[2016-07-06 06:49] LABS: BASO % 0 % (0-3); EOS % 0 % (0-3); HEMATOCRIT 28.6 % (36.0-47.0); HEMOGLOBIN 9.3 g/dL (12.0-15.5); LYMPH # 0.5 x10^3/uL (1.0-4.8); LYMPH % 16 % (24-48); MEAN CORPUSCULAR HEMOGLOBIN 29 pg (25-35); MEAN CORPUSCULAR HGB CONC 33 g/dL (31-37); MEAN CORPUSCULAR VOLUME 87 fL (79-100); MONO % 4 % (0-9); NEUT % 81 % (31-73); PLATELET COUNT 334 x10^3/uL (140-400); RED BLOOD COUNT 3.27 x10^6/uL (3.50-5.40); RED CELL DISTRIBUTION WIDTH 19.7 % (11.5-14.5); WHITE BLOOD COUNT 3.1 x10^3/uL (4.0-11.0)
[2016-07-06 07:03] LABS: CALCIUM 8.8 mg/dL (8.5-10.1); CREATININE 0.5 mg/dL (0.6-1.0); GFR 119.3; POTASSIUM 4.4 mmol/L (3.5-5.1)
[2016-07-06 07:30] VITALS: BP 121/79
[2016-07-06] MEDS: HYDROMORPHONE 2 MG/ML VIAL. IV PRN ×4 (07:39→20:44)
[2016-07-06] MEDS ORDERED: FENTANYL 25MCG/HR PATCH. TD SCH (08:00)
[2016-07-06] MEDS: ASPIRIN ENTERIC COATED 81 MG TABLET.DR. PO SCH (09:23)
[2016-07-06] MEDS: CARVEDILOL 3.125 MG TABLET PO SCH ×2 (09:24→17:27)
[2016-07-06] MEDS: MAGNESIUM OXIDE 400 MG TABLET PO SCH ×3 (09:25→20:44)
[2016-07-06] MEDS: methylPREDNISolone SOD SUCC PF 125 MG/2 ML VIAL. IV SCH ×2 (09:25→20:44)
[2016-07-06] MEDS: NYSTATIN 100,000 UNITS/ML 5 ML ORAL.SUSP. PO SCH ×4 (09:25→20:44)
[2016-07-06] MEDS: CLOPIDOGREL BISULFATE 75 MG TABLET PO SCH (09:27)
[2016-07-06] MEDS: LIDO:MAALOX:BENADRYL 1:1:1 180 ML BOTTLE. PO PRN ×3 (09:28→17:27)
[2016-07-06 10:55] VITALS: BP 128/65
--- NOTE | 2016-07-06 11:55 | PDOC ---
PULMONARY PROGRESS NOTES Vitals Vital Signs Date Time Temp Pulse Resp B/P Pulse Ox O2 Delivery O2 Flow Rate FiO2 07/06/16 10:55 97.9 87 20 128/65 97 Nasal Cannula 2.0 97.9 Lungs: Crackles, Other (Course breath sounds) Cardiovascular: S1, S2 Abdomen: Soft Extremities: No Edema Labs Laboratory Tests Test 07/04/16 17:50 07/05/16 04:03 07/05/16 09:40 07/06/16 06:00 White Blood Count 5.7x10^3/uL (4.0-11.0) 4.4x10^3/uL (4.0-11.0) 3.1x10^3/uL (4.0-11.0) Red Blood Count 3.34x10^6/uL (3.50-5.40) 2.98x10^6/uL (3.50-5.40) 3.27x10^6/uL (3.50-5.40) Hemoglobin 9.5g/dL (12.0-15.5) 8.6g/dL (12.0-15.5) 9.3g/dL (12.0-15.5) Hematocrit 29.7% (36.0-47.0) 25.7% (36.0-47.0) 28.6% (36.0-47.0) Mean Corpuscular Volume 89fL (79-100) 86fL (79-100) 87fL (79-100) Mean Corpuscular Hemoglobin 28pg (25-35) 29pg (25-35) 29pg (25-35) Mean Corpuscular Hemoglobin Concent 32g/dL (31-37) 33g/dL (31-37) 33g/dL (31-37) Red Cell Distribution Width 20.2% (11.5-14.5) 20.4% (11.5-14.5) 19.7% (11.5-14.5) Platelet Count 345x10^3/uL (140-400) 310x10^3/uL (140-400) 334x10^3/uL (140-400) Neutrophils (%) (Auto) 79% (31-73) 66% (31-73) 81% (31-73) Lymphocytes (%) (Auto) 8% (24-48) 15% (24-48) 16% (24-48) Monocytes (%) (Auto) 9% (0-9) 13% (0-9) 4% (0-9) Eosinophils (%) (Auto) 2% (0-3) 5% (0-3) 0% (0-3) Basophils (%) (Auto) 1% (0-3) 1% (0-3) 0% (0-3) Neutrophils # (Auto) 4.5x10^3uL (1.8-7.7) 2.9x10^3uL (1.8-7.7) 2.5x10^3uL (1.8-7.7) Lymphocytes # (Auto) 0.5x10^3/uL (1.0-4.8) 0.6x10^3/uL (1.0-4.8) 0.5x10^3/uL (1.0-4.8) Monocytes # (Auto) 0.5x10^3/uL (0.0-1.1) 0.6x10^3/uL (0.0-1.1) 0.1x10^3/uL (0.0-1.1) Eosinophils # (Auto) 0.1x10^3/uL (0.0-0.7) 0.2x10^3/uL (0.0-0.7) 0.0x10^3/uL (0.0-0.7) Basophils # (Auto) 0.0x10^3/uL (0.0-0.2) 0.0x10^3/uL (0.0-0.2) 0.0x10^3/uL (0.0-0.2) Platelet Estimate Adequate (ADEQUATE) Polychromasia Slight Anisocytosis Mod Sodium Level 139mmol/L (136-145) 138mmol/L (136-145) 134mmol/L (136-145) Potassium Level 4.9mmol/L (3.5-5.1) 4.2mmol/L (3.5-5.1) 4.4mmol/L (3.5-5.1) Chloride Level 99mmol/L (98-107) 100mmol/L (98-107) 97mmol/L (98-107) Carbon Dioxide Level 35mmol/L (21-32) 34mmol/L (21-32) 30mmol/L (21-32) Anion Gap 5 (6-14) 4 (6-14) 7 (6-14) Blood Urea Nitrogen 23mg/dL (7-20) 17mg/dL (7-20) 14mg/dL (7-20) Creatinine 0.7mg/dL (0.6-1.0) 0.6mg/dL (0.6-1.0) 0.5mg/dL (0.6-1.0) Estimated GFR (Cockcroft-Gault) 80.9 96.7 119.3 Glucose Level 91mg/dL (70-99) 92mg/dL (70-99) 152mg/dL (70-99) Calcium Level 8.9mg/dL (8.5-10.1) 8.5mg/dL (8.5-10.1) 8.8mg/dL (8.5-10.1) Total Bilirubin 0.5mg/dL (0.2-1.0) Direct Bilirubin 0.1mg/dL (0.0-0.2) Aspartate Amino Transf (AST/SGOT) 35U/L (15-37) Alanine Aminotransferase (ALT/SGPT) 49U/L (14-59) Alkaline Phosphatase 75U/L (46-116) Troponin I Quantitative < 0.017ng/mL (0.000-0.055) JQ-Qcz-W-Type Natriuretic Peptide 2670pg/mL (0-449) Total Protein 6.4g/dL (6.4-8.2) Albumin 2.7g/dL (3.4-5.0) Lipase 119U/L (73-393) Influenza Type A Antigen Negative (NEGATIVE) Influenza Type B Antigen Negative (NEGATIVE) Laboratory Tests Test 07/06/16 06:00 White Blood Count 3.1x10^3/uL (4.0-11.0) Red Blood Count 3.27x10^6/uL (3.50-5.40) Hemoglobin 9.3g/dL (12.0-15.5) Hematocrit 28.6% (36.0-47.0) Mean Corpuscular Volume 87fL (79-100) Mean Corpuscular Hemoglobin 29pg (25-35) Mean Corpuscular Hemoglobin Concent 33g/dL (31-37) Red Cell Distribution Width 19.7% (11.5-14.5) Platelet Count 334x10^3/uL (140-400) Neutrophils (%) (Auto) 81% (31-73) Lymphocytes (%) (Auto) 16% (24-48) Monocytes (%) (Auto) 4% (0-9) Eosinophils (%) (Auto) 0% (0-3) Basophils (%) (Auto) 0% (0-3) Neutrophils # (Auto) 2.5x10^3uL (1.8-7.7) Lymphocytes # (Auto) 0.5x10^3/uL (1.0-4.8) Monocytes # (Auto) 0.1x10^3/uL (0.0-1.1) Eosinophils # (Auto) 0.0x10^3/uL (0.0-0.7) Basophils # (Auto) 0.0x10^3/uL (0.0-0.2) Sodium Level 134mmol/L (136-145) Potassium Level 4.4mmol/L (3.5-5.1) Chloride Level 97mmol/L (98-107) Carbon Dioxide Level 30mmol/L (21-32) Anion Gap 7 (6-14) Blood Urea Nitrogen 14mg/dL (7-20) Creatinine 0.5mg/dL (0.6-1.0) Estimated GFR (Cockcroft-Gault) 119.3 Glucose Level 152mg/dL (70-99) Calcium Level 8.8mg/dL (8.5-10.1) Medications Active Scripts Medications Dose Route/Sig Days Date Category [Magic Mouthwash] 10 Ml SWSW TID PRN 07/04/16 Reported Senokot-S Tablet (Sennosides/Docusate Sodium) 1 Each Tablet 1 Each PO BID PRN 07/04/16 Reported Ipratropium [place] 0.2 Mg/1 Ml Solution 0.2 Mg IH PRN TID PRN 07/04/16 Reported Aspir 81 (Aspirin) 81 Mg Tablet.dr 81 Mg PO DAILY 07/04/16 Reported Carvedilol 3.125 Mg Tablet 3.125 Mg PO BIDWMEALS 07/04/16 Reported Albuterol Sulfate Conc Neb Soln (Albuterol Sulfate) 2.5 Mg/0.5 Ml Vial.neb 2.5 Mg NEB PRN Q4HRS PRN 07/04/16 Reported FENTANYL 12mcg/hr (Fentanyl) 1 Each Patch.td72 1 Patch TD Q72H 07/04/16 Reported Lidocaine Hcl Viscous (Lidocaine Hcl) 20 Mg/1 Ml Solution 10 Ml PO PRN Q2HRS PRN 07/04/16 Reported Nexium Capsule (Esomeprazole Magnesium) 40 Mg Capsule.dr 40 Mg PO BID 07/04/16 Reported Oxycodone Hcl 5 Mg Capsule 5 Mg PO PRN Q4HRS PRN 07/04/16 Reported Nystatin 100,000 Unit/1 Ml Oral.susp 5 Ml PO QID 07/04/16 Reported Clopidogrel (Clopidogrel Bisulfate) 75 Mg Tablet 75 Mg PO DAILY 07/04/16 Reported Vitamin D (Cholecalciferol (Vitamin D3)) 1,000 Unit Capsule 1 Cap PO DAILY 04/25/16 Reported Crestor (Rosuvastatin Calcium) 10 Mg Tablet 1 Tab PO DAILY 04/25/16 Reported Impression . FULL CONSULT DICTATED AECOPD RULE OUT PE SEE ORDERS THANKS KELSI YOUSSEF MD Jul 06, 2016 11:55
[2016-07-06] MEDS ORDERED: AA 3%/ELECTROLYTE-TPN SOLN/GLY 1,000 ML IV SCH ×2 (12:00→18:41)
[2016-07-06] MEDS ORDERED: PHENYLEPH/MINERAL OIL/PETROLAT RECTAL OINTMENT 28GM TUBE. RC PRN (12:30)
[2016-07-06] MEDS: SENNOSIDES/DOCUSATE 8.6/50MG TABLET. PO PRN ×2 (12:37→22:50)
[2016-07-06] MEDS: CHOLECALCIFEROL (VITAMIN D3) 1,000 UNIT TABLET PO SCH (12:38)
--- NOTE | 2016-07-06 13:48 | CONS ---
DATE OF CONSULTATION: 07/05/2016 CONSULTATION REQUESTED BY: Dr. Lara Gates. REASON FOR CONSULTATION: Lung cancer, stage III B now admitted with dyspnea. HISTORY OF PRESENT ILLNESS: This patient is a 76-year-old female who was initially admitted to [facility] in 04/2016 with exacerbation of COPD. CT scan showed spiculated soft tissue masses in the right upper lobe compatible with neoplastic disease. There was also evidence of substantial hilar and mediastinal lymphadenopathy. She was admitted to [facility] and during that admission, she underwent a bronchoscopy and biopsy on 05/05/2016. This revealed a friable tumor extending from the anterior surface of the distal trachea to terry with additional tumor at the orifice of right upper lobe segmental bronchus. Final pathology from the biopsy revealed squamous cell carcinoma, likely lung primary. She was started on radiation therapy on 05/06/2016 and it was completed on 06/24/2016. Her functional status was poor and hence she did not receive chemotherapy. She noted dyspnea of three to four days' duration. Her oxygen saturation dropped and hence she was sent to the Emergency Room on 07/04/2016 and she was subsequently admitted. She was evaluated by Dr. Melissa Blackwood. The patient underwent a chest x-ray on 07/04/2016 that revealed increased lung markings throughout the lungs bilaterally suggestive of chronic lung disease. She underwent a V/Q scan that revealed intermediate probability for pulmonary embolism on 07/05/2016. PAST MEDICAL HISTORY: Hypertension, coronary artery disease, COPD. SOCIAL HISTORY: She has quit smoking. FAMILY HISTORY: Positive for lung cancer in her brother and father. REVIEW OF SYSTEMS: A 12-point review of system was performed. Pertinent positives are mentioned in the history of presenting illness. Rest of the system review is negative. PHYSICAL EXAMINATION: GENERAL APPEARANCE: The patient is a 76-year-old female who is in no acute cardiorespiratory distress. VITAL SIGNS: Blood pressure 122/62, temperature 98.5. HEENT: Atraumatic, normocephalic. Eyes: No icterus. NECK: Supple. CHEST: Bilaterally symmetrical. No crepitations or rhonchi heard. HEART: S1, S2 normal. ABDOMEN: Soft, nontender. CENTRAL NERVOUS SYSTEM: No focal deficits. LYMPHATICS: No lymphadenopathy. SKIN: No rashes. PSYCHOLOGIC: Mood and affect are appropriate. MUSCULOSKELETAL: No joint effusions. LABORATORY DATA: WBC 4.4, hemoglobin 8.6, platelet count 310. IMPRESSION AND PLAN: 1. Stage III B known small cell lung cancer involving the right upper lobe hilar and mediastinal lymphadenopathy with biopsy on 05/05/2016 revealing squamous cell carcinoma. She underwent radiation therapy from 05/06/2016 to 06/24/2016. Her functional status continues to be poor and hence I did not initiate sequential chemotherapy. I would continue to monitor closely. 2. Dyspnea, may be related to chronic obstructive pulmonary disease, appreciate pulmonary consultation. V/Q scan was intermediate probability for pulmonary embolism. Management per Dr. Blackwood. I discussed with Dr. Blackwood. I also discussed with Dr. Gates. 3. Anemia, chronic due to malignancy and radiation therapy and chronic disease. Hemoglobin is worse at 8.6. There are no signs of bleeding. I will check iron studies, B12 and folic acid levels. ESTHELA AVITIA MD DR: MARY/nts JOB#: [id number] / [id number] MTDD
--- NOTE | 2016-07-06 15:16 | PDOC ---
PULMONARY PROGRESS NOTES Vitals Vital Signs Date Time Temp Pulse Resp B/P Pulse Ox O2 Delivery O2 Flow Rate FiO2 07/06/16 12:36 17 97 Nasal Cannula 2.0 07/06/16 10:55 97.9 87 128/65 97.9 Lungs: Crackles, Other (Course breath sounds) Cardiovascular: S1, S2 Abdomen: Soft Extremities: No Edema Labs Laboratory Tests Test 07/04/16 17:50 07/05/16 04:03 07/05/16 09:40 07/06/16 06:00 White Blood Count 5.7x10^3/uL (4.0-11.0) 4.4x10^3/uL (4.0-11.0) 3.1x10^3/uL (4.0-11.0) Red Blood Count 3.34x10^6/uL (3.50-5.40) 2.98x10^6/uL (3.50-5.40) 3.27x10^6/uL (3.50-5.40) Hemoglobin 9.5g/dL (12.0-15.5) 8.6g/dL (12.0-15.5) 9.3g/dL (12.0-15.5) Hematocrit 29.7% (36.0-47.0) 25.7% (36.0-47.0) 28.6% (36.0-47.0) Mean Corpuscular Volume 89fL (79-100) 86fL (79-100) 87fL (79-100) Mean Corpuscular Hemoglobin 28pg (25-35) 29pg (25-35) 29pg (25-35) Mean Corpuscular Hemoglobin Concent 32g/dL (31-37) 33g/dL (31-37) 33g/dL (31-37) Red Cell Distribution Width 20.2% (11.5-14.5) 20.4% (11.5-14.5) 19.7% (11.5-14.5) Platelet Count 345x10^3/uL (140-400) 310x10^3/uL (140-400) 334x10^3/uL (140-400) Neutrophils (%) (Auto) 79% (31-73) 66% (31-73) 81% (31-73) Lymphocytes (%) (Auto) 8% (24-48) 15% (24-48) 16% (24-48) Monocytes (%) (Auto) 9% (0-9) 13% (0-9) 4% (0-9) Eosinophils (%) (Auto) 2% (0-3) 5% (0-3) 0% (0-3) Basophils (%) (Auto) 1% (0-3) 1% (0-3) 0% (0-3) Neutrophils # (Auto) 4.5x10^3uL (1.8-7.7) 2.9x10^3uL (1.8-7.7) 2.5x10^3uL (1.8-7.7) Lymphocytes # (Auto) 0.5x10^3/uL (1.0-4.8) 0.6x10^3/uL (1.0-4.8) 0.5x10^3/uL (1.0-4.8) Monocytes # (Auto) 0.5x10^3/uL (0.0-1.1) 0.6x10^3/uL (0.0-1.1) 0.1x10^3/uL (0.0-1.1) Eosinophils # (Auto) 0.1x10^3/uL (0.0-0.7) 0.2x10^3/uL (0.0-0.7) 0.0x10^3/uL (0.0-0.7) Basophils # (Auto) 0.0x10^3/uL (0.0-0.2) 0.0x10^3/uL (0.0-0.2) 0.0x10^3/uL (0.0-0.2) Platelet Estimate Adequate (ADEQUATE) Polychromasia Slight Anisocytosis Mod Sodium Level 139mmol/L (136-145) 138mmol/L (136-145) 134mmol/L (136-145) Potassium Level 4.9mmol/L (3.5-5.1) 4.2mmol/L (3.5-5.1) 4.4mmol/L (3.5-5.1) Chloride Level 99mmol/L (98-107) 100mmol/L (98-107) 97mmol/L (98-107) Carbon Dioxide Level 35mmol/L (21-32) 34mmol/L (21-32) 30mmol/L (21-32) Anion Gap 5 (6-14) 4 (6-14) 7 (6-14) Blood Urea Nitrogen 23mg/dL (7-20) 17mg/dL (7-20) 14mg/dL (7-20) Creatinine 0.7mg/dL (0.6-1.0) 0.6mg/dL (0.6-1.0) 0.5mg/dL (0.6-1.0) Estimated GFR (Cockcroft-Gault) 80.9 96.7 119.3 Glucose Level 91mg/dL (70-99) 92mg/dL (70-99) 152mg/dL (70-99) Calcium Level 8.9mg/dL (8.5-10.1) 8.5mg/dL (8.5-10.1) 8.8mg/dL (8.5-10.1) Total Bilirubin 0.5mg/dL (0.2-1.0) Direct Bilirubin 0.1mg/dL (0.0-0.2) Aspartate Amino Transf (AST/SGOT) 35U/L (15-37) Alanine Aminotransferase (ALT/SGPT) 49U/L (14-59) Alkaline Phosphatase 75U/L (46-116) Troponin I Quantitative < 0.017ng/mL (0.000-0.055) XP-Lpt-P-Type Natriuretic Peptide 2670pg/mL (0-449) Total Protein 6.4g/dL (6.4-8.2) Albumin 2.7g/dL (3.4-5.0) Lipase 119U/L (73-393) Influenza Type A Antigen Negative (NEGATIVE) Influenza Type B Antigen Negative (NEGATIVE) Laboratory Tests Test 07/06/16 06:00 White Blood Count 3.1x10^3/uL (4.0-11.0) Red Blood Count 3.27x10^6/uL (3.50-5.40) Hemoglobin 9.3g/dL (12.0-15.5) Hematocrit 28.6% (36.0-47.0) Mean Corpuscular Volume 87fL (79-100) Mean Corpuscular Hemoglobin 29pg (25-35) Mean Corpuscular Hemoglobin Concent 33g/dL (31-37) Red Cell Distribution Width 19.7% (11.5-14.5) Platelet Count 334x10^3/uL (140-400) Neutrophils (%) (Auto) 81% (31-73) Lymphocytes (%) (Auto) 16% (24-48) Monocytes (%) (Auto) 4% (0-9) Eosinophils (%) (Auto) 0% (0-3) Basophils (%) (Auto) 0% (0-3) Neutrophils # (Auto) 2.5x10^3uL (1.8-7.7) Lymphocytes # (Auto) 0.5x10^3/uL (1.0-4.8) Monocytes # (Auto) 0.1x10^3/uL (0.0-1.1) Eosinophils # (Auto) 0.0x10^3/uL (0.0-0.7) Basophils # (Auto) 0.0x10^3/uL (0.0-0.2) Sodium Level 134mmol/L (136-145) Potassium Level 4.4mmol/L (3.5-5.1) Chloride Level 97mmol/L (98-107) Carbon Dioxide Level 30mmol/L (21-32) Anion Gap 7 (6-14) Blood Urea Nitrogen 14mg/dL (7-20) Creatinine 0.5mg/dL (0.6-1.0) Estimated GFR (Cockcroft-Gault) 119.3 Glucose Level 152mg/dL (70-99) Calcium Level 8.8mg/dL (8.5-10.1) Medications Active Scripts Medications Dose Route/Sig Days Date Category [Magic Mouthwash] 10 Ml SWSW TID PRN 07/04/16 Reported Senokot-S Tablet (Sennosides/Docusate Sodium) 1 Each Tablet 1 Each PO BID PRN 07/04/16 Reported Ipratropium [place] 0.2 Mg/1 Ml Solution 0.2 Mg IH PRN TID PRN 07/04/16 Reported Aspir 81 (Aspirin) 81 Mg Tablet.dr 81 Mg PO DAILY 07/04/16 Reported Carvedilol 3.125 Mg Tablet 3.125 Mg PO BIDWMEALS 07/04/16 Reported Albuterol Sulfate Conc Neb Soln (Albuterol Sulfate) 2.5 Mg/0.5 Ml Vial.neb 2.5 Mg NEB PRN Q4HRS PRN 07/04/16 Reported FENTANYL 12mcg/hr (Fentanyl) 1 Each Patch.td72 1 Patch TD Q72H 07/04/16 Reported Lidocaine Hcl Viscous (Lidocaine Hcl) 20 Mg/1 Ml Solution 10 Ml PO PRN Q2HRS PRN 07/04/16 Reported Nexium Capsule (Esomeprazole Magnesium) 40 Mg Capsule.dr 40 Mg PO BID 07/04/16 Reported Oxycodone Hcl 5 Mg Capsule 5 Mg PO PRN Q4HRS PRN 07/04/16 Reported Nystatin 100,000 Unit/1 Ml Oral.susp 5 Ml PO QID 07/04/16 Reported Clopidogrel (Clopidogrel Bisulfate) 75 Mg Tablet 75 Mg PO DAILY 07/04/16 Reported Vitamin D (Cholecalciferol (Vitamin D3)) 1,000 Unit Capsule 1 Cap PO DAILY 04/25/16 Reported Crestor (Rosuvastatin Calcium) 10 Mg Tablet 1 Tab PO DAILY 04/25/16 Reported Impression . 1. Acute respiratory failure, etiology unclear, suspect secondary to acute exacerbation of chronic obstructive pulmonary disease, rule out pulmonary embolus. 2. Recent diagnosis of nonsmall cell lung cancer, status post radiation to the right lower lobe, staging is unknown at this time. 3. Radiation-induced esophagitis leading to dysphagia. 4. Iqhjowob-vx-vzkiln protein malnutrition secondary to above. 5. Chronic anemia. 6. Coronary artery disease with low ejection fraction. Plan . V/Q NOT HELPFUL IN RULING IN OR OUT PE CLINICALLY I DON'T THINK THIS IS RELATED TO PE HOME IN AM OK KELSI YOUSSEF MD Jul 06, 2016 15:16
--- NOTE | 2016-07-06 15:17 | PDOC ---
PROGRESS NOTES Chief Complaint Chief Complaint CC: Hypoxia on admit hypercarbia on admit improved Non-small cell lung carcinoma dysphagia mod severe, malnutrition, BMI 17.6, ALb 2.7 on admit History of Present Illness History of Present Illness she wants home 02, has had a sleep study before, will try 6 min walk Pt lying in bed Pt sees oncologist at Pt said she has completed her radiation therapy and the last dose was 4 weeks ago to R lower lobe VSS DW RN Vitals Vitals Vital Signs Date Time Temp Pulse Resp B/P Pulse Ox O2 Delivery O2 Flow Rate FiO2 07/06/16 12:36 17 97 Nasal Cannula 2.0 07/06/16 10:55 97.9 87 128/65 97.9 Physical Exam General: Alert, Oriented X3, No acute distress Heart: Regular rate, No murmurs Lungs: Crackles, Other (Course breath sounds) Abdomen: Soft, No tenderness Extremities: No cyanosis, No edema Skin: No rashes, No breakdown Labs LABS Laboratory Tests Test 07/06/16 06:00 White Blood Count 3.1x10^3/uL (4.0-11.0) Red Blood Count 3.27x10^6/uL (3.50-5.40) Hemoglobin 9.3g/dL (12.0-15.5) Hematocrit 28.6% (36.0-47.0) Mean Corpuscular Volume 87fL (79-100) Mean Corpuscular Hemoglobin 29pg (25-35) Mean Corpuscular Hemoglobin Concent 33g/dL (31-37) Red Cell Distribution Width 19.7% (11.5-14.5) Platelet Count 334x10^3/uL (140-400) Neutrophils (%) (Auto) 81% (31-73) Lymphocytes (%) (Auto) 16% (24-48) Monocytes (%) (Auto) 4% (0-9) Eosinophils (%) (Auto) 0% (0-3) Basophils (%) (Auto) 0% (0-3) Neutrophils # (Auto) 2.5x10^3uL (1.8-7.7) Lymphocytes # (Auto) 0.5x10^3/uL (1.0-4.8) Monocytes # (Auto) 0.1x10^3/uL (0.0-1.1) Eosinophils # (Auto) 0.0x10^3/uL (0.0-0.7) Basophils # (Auto) 0.0x10^3/uL (0.0-0.2) Sodium Level 134mmol/L (136-145) Potassium Level 4.4mmol/L (3.5-5.1) Chloride Level 97mmol/L (98-107) Carbon Dioxide Level 30mmol/L (21-32) Anion Gap 7 (6-14) Blood Urea Nitrogen 14mg/dL (7-20) Creatinine 0.5mg/dL (0.6-1.0) Estimated GFR (Cockcroft-Gault) 119.3 Glucose Level 152mg/dL (70-99) Calcium Level 8.8mg/dL (8.5-10.1) Assessment and Plan Assessmemt and Plan 6 in walk Rad onc consult, possible symptoms from radiation therapy, will f/u at [facility] in 2 weeks, with CT - PET scan Problems Medical Problems: (1) Dyspnea Status: Acute (2) Hypoxia Status: Acute Problems: Comment Review of Relevant I have reviewed the following items mateo (where applicable) has been applied. Labs Laboratory Tests Test 07/04/16 17:50 07/05/16 04:03 07/05/16 09:40 07/06/16 06:00 White Blood Count 5.7x10^3/uL (4.0-11.0) 4.4x10^3/uL (4.0-11.0) 3.1x10^3/uL (4.0-11.0) Red Blood Count 3.34x10^6/uL (3.50-5.40) 2.98x10^6/uL (3.50-5.40) 3.27x10^6/uL (3.50-5.40) Hemoglobin 9.5g/dL (12.0-15.5) 8.6g/dL (12.0-15.5) 9.3g/dL (12.0-15.5) Hematocrit 29.7% (36.0-47.0) 25.7% (36.0-47.0) 28.6% (36.0-47.0) Mean Corpuscular Volume 89fL (79-100) 86fL (79-100) 87fL (79-100) Mean Corpuscular Hemoglobin 28pg (25-35) 29pg (25-35) 29pg (25-35) Mean Corpuscular Hemoglobin Concent 32g/dL (31-37) 33g/dL (31-37) 33g/dL (31-37) Red Cell Distribution Width 20.2% (11.5-14.5) 20.4% (11.5-14.5) 19.7% (11.5-14.5) Platelet Count 345x10^3/uL (140-400) 310x10^3/uL (140-400) 334x10^3/uL (140-400) Neutrophils (%) (Auto) 79% (31-73) 66% (31-73) 81% (31-73) Lymphocytes (%) (Auto) 8% (24-48) 15% (24-48) 16% (24-48) Monocytes (%) (Auto) 9% (0-9) 13% (0-9) 4% (0-9) Eosinophils (%) (Auto) 2% (0-3) 5% (0-3) 0% (0-3) Basophils (%) (Auto) 1% (0-3) 1% (0-3) 0% (0-3) Neutrophils # (Auto) 4.5x10^3uL (1.8-7.7) 2.9x10^3uL (1.8-7.7) 2.5x10^3uL (1.8-7.7) Lymphocytes # (Auto) 0.5x10^3/uL (1.0-4.8) 0.6x10^3/uL (1.0-4.8) 0.5x10^3/uL (1.0-4.8) Monocytes # (Auto) 0.5x10^3/uL (0.0-1.1) 0.6x10^3/uL (0.0-1.1) 0.1x10^3/uL (0.0-1.1) Eosinophils # (Auto) 0.1x10^3/uL (0.0-0.7) 0.2x10^3/uL (0.0-0.7) 0.0x10^3/uL (0.0-0.7) Basophils # (Auto) 0.0x10^3/uL (0.0-0.2) 0.0x10^3/uL (0.0-0.2) 0.0x10^3/uL (0.0-0.2) Platelet Estimate Adequate (ADEQUATE) Polychromasia Slight Anisocytosis Mod Sodium Level 139mmol/L (136-145) 138mmol/L (136-145) 134mmol/L (136-145) Potassium Level 4.9mmol/L (3.5-5.1) 4.2mmol/L (3.5-5.1) 4.4mmol/L (3.5-5.1) Chloride Level 99mmol/L (98-107) 100mmol/L (98-107) 97mmol/L (98-107) Carbon Dioxide Level 35mmol/L (21-32) 34mmol/L (21-32) 30mmol/L (21-32) Anion Gap 5 (6-14) 4 (6-14) 7 (6-14) Blood Urea Nitrogen 23mg/dL (7-20) 17mg/dL (7-20) 14mg/dL (7-20) Creatinine 0.7mg/dL (0.6-1.0) 0.6mg/dL (0.6-1.0) 0.5mg/dL (0.6-1.0) Estimated GFR (Cockcroft-Gault) 80.9 96.7 119.3 Glucose Level 91mg/dL (70-99) 92mg/dL (70-99) 152mg/dL (70-99) Calcium Level 8.9mg/dL (8.5-10.1) 8.5mg/dL (8.5-10.1) 8.8mg/dL (8.5-10.1) Total Bilirubin 0.5mg/dL (0.2-1.0) Direct Bilirubin 0.1mg/dL (0.0-0.2) Aspartate Amino Transf (AST/SGOT) 35U/L (15-37) Alanine Aminotransferase (ALT/SGPT) 49U/L (14-59) Alkaline Phosphatase 75U/L (46-116) Troponin I Quantitative < 0.017ng/mL (0.000-0.055) NA-Wvd-Y-Type Natriuretic Peptide 2670pg/mL (0-449) Total Protein 6.4g/dL (6.4-8.2) Albumin 2.7g/dL (3.4-5.0) Lipase 119U/L (73-393) Influenza Type A Antigen Negative (NEGATIVE) Influenza Type B Antigen Negative (NEGATIVE) Laboratory Tests Test 07/06/16 06:00 White Blood Count 3.1x10^3/uL (4.0-11.0) Red Blood Count 3.27x10^6/uL (3.50-5.40) Hemoglobin 9.3g/dL (12.0-15.5) Hematocrit 28.6% (36.0-47.0) Mean Corpuscular Volume 87fL (79-100) Mean Corpuscular Hemoglobin 29pg (25-35) Mean Corpuscular Hemoglobin Concent 33g/dL (31-37) Red Cell Distribution Width 19.7% (11.5-14.5) Platelet Count 334x10^3/uL (140-400) Neutrophils (%) (Auto) 81% (31-73) Lymphocytes (%) (Auto) 16% (24-48) Monocytes (%) (Auto) 4% (0-9) Eosinophils (%) (Auto) 0% (0-3) Basophils (%) (Auto) 0% (0-3) Neutrophils # (Auto) 2.5x10^3uL (1.8-7.7) Lymphocytes # (Auto) 0.5x10^3/uL (1.0-4.8) Monocytes # (Auto) 0.1x10^3/uL (0.0-1.1) Eosinophils # (Auto) 0.0x10^3/uL (0.0-0.7) Basophils # (Auto) 0.0x10^3/uL (0.0-0.2) Sodium Level 134mmol/L (136-145) Potassium Level 4.4mmol/L (3.5-5.1) Chloride Level 97mmol/L (98-107) Carbon Dioxide Level 30mmol/L (21-32) Anion Gap 7 (6-14) Blood Urea Nitrogen 14mg/dL (7-20) Creatinine 0.5mg/dL (0.6-1.0) Estimated GFR (Cockcroft-Gault) 119.3 Glucose Level 152mg/dL (70-99) Calcium Level 8.8mg/dL (8.5-10.1) Medications Current Medications Albuterol/ Ipratropium (Duoneb) 3 ml 1X ONCE NEB Last administered on 19:09; Start 07/04/16 at 19:00; Stop 07/04/16 at 19:01; Status DC Ondansetron HCl (Zofran) 4 mg PRN Q8HRS PRN IV NAUSEA/VOMITING; Start 07/04/16 at 19:45; Stop 07/05/16 at 19:44; Status DC Morphine Sulfate 2 mg PRN Q2HR PRN IV PAIN; Start 07/04/16 at 19:45; Stop 07/05 at 19:44; Status DC Prednisone (Prednisone) 20 mg DAILY PO ; Start 07/05/16 at 09:00; Stop 07/05/16 at 09:00; Status DC Pantoprazole Sodium (Protonix) 40 mg DAILYAC PO Last administered on 07/05/16 08:47; Start 07/05/16 at 07:30; Stop 07/06/16 at 14:07; Status DC Morphine Sulfate 15 mg 15 mg PRN Q4HRS PRN PO PAIN Last administered on 08:47; Start 07/04/16 at 23:45 Sodium Chloride (Iv Sodium Chloride 0.45%) 1,000 ml @ 75 mls/hr [id number] IV Last administered on 07/05/16 21:15; Start 07/05/16 at 07:15; Stop 07/06/16 at 11:28; Status DC Methylprednisolone Sodium Succinate (Solu-Medrol 125mg Vial) 60 mg BID IV Last administered on 07/06/16 09:25; Start 07/05/16 at 09:00 Fentanyl (Duragesic 25mcg/ Hr Patch) 1 patch Q3DAYS TD Last administered on 12:53; Start 07/05/16 at 13:00; Stop 07/06/16 at 07:57; Status DC Morphine Sulfate 4 mg PRN Q2HR PRN IV MODERATE PAIN Last administered on 15:16; Start 07/05/16 at 12:30 Multi-Ingredient Mouthwash/Gargle (Magic Mouthwash) 10 ml PRN QID PRN PO MOUTH PAIN Last administered on 07/06/16 12:37; Start 07/05/16 at 12:30 Hydromorphone HCl (Dilaudid) 1 mg PRN Q2HR PRN IV SEVERE PAIN Last administered on 07/06/16 12:36; Start 07/05/16 at 18:00 Bisacodyl (Dulcolax Supp) 10 mg PRN DAILY PRN IN CONSTIPATION Last administered on 07/06/16 09:26; Start 07/05/16 at 18:15 Aspirin (Ecotrin) 81 mg DAILY PO Last administered on 07/06/16 09:23; Start at 09:00 Carvedilol (Coreg) 3.125 mg BIDWMEALS PO Last administered on 07/06/16 09:24; Start 07/06/16 at 08:00 Clopidogrel Bisulfate (Plavix) 75 mg DAILY PO Last administered on 07/06/16 09 :27; Start 07/06/16 at 09:00 Lidocaine HCl 10 ml PRN Q2HRS PRN MC PAIN; Start 07/05/16 at 22:15 Nystatin 5 ml QID PO Last administered on 07/06/16 12:34; Start 07/06/16 at 09 :00 Senna/Docusate Sodium (Senna Plus) 1 tab PRN BID PRN PO CONSTIPATION Last administered on 07/06/16 12:37; Start 07/05/16 at 22:15 Non-Formulary Medication 2.5 mg PRN Q4HRS PRN NEB SHORTNESS OF BREATH; Start at 22:15; Status UNV Vitamin D (Vitamin D3) 1,000 unit DAILY PO Last administered on 07/06/16 12:38 ; Start 07/06/16 at 09:00 Pantoprazole Sodium (Protonix) 40 mg BIDBFRMEAL PO ; Start 07/06/16 at 07:30 Oxycodone HCl (Roxicodone) 5 mg PRN Q4HRS PRN PO PAIN; Start 07/05/16 at 22:15 Atorvastatin Calcium (Lipitor) 40 mg HS PO ; Start 07/06/16 at 21:00 Non-Formulary Medication 10 ml TID PRN SWSW PAIN; Start 07/05/16 at 22:15; Status UNV Magnesium Oxide (Magnesium Oxide) 400 mg BID PO Last administered on 07/06/16 12:37; Start 07/06/16 at 09:00 Albuterol Sulfate (Ventolin Neb Soln) 2.5 mg PRN Q4HRS PRN NEB SHORTNESS OF BREATH; Start 07/05/16 at 22:45 Fentanyl 1 patch 1 patch Q3DAYS TD Last administered on 07/06/16 08:00; Start 07/06/16 at 08:00 Amino Acids/ Glycerin/ Electrolytes (Procalamine) 1,000 ml @ 80 mls/hr [id number] IV Last administered on 07/06/16 12:35; Start 07/06/16 at 12:00 Phenyleph/Shark Oil/Min Oil/Petrol (Preparation H) 1 parminder BID PRN RC RECTAL PAIN ; Start 07/06/16 at 12:30 Active Scripts Active Reported Magnesium Oxide 400 Mg Tablet 1 Tab PO BID [Magic Mouthwash] 10 Ml SWSW TID PRN Senokot-S Tablet (Sennosides/Docusate Sodium) 1 Each Tablet 1 Each PO BID PRN Ipratropium Driver 0.2 Mg/1 Ml Solution 0.2 Mg IH PRN TID PRN Aspir 81 (Aspirin) 81 Mg Tablet. 81 Mg PO DAILY Carvedilol 3.125 Mg Tablet 3.125 Mg PO BIDWMEALS Albuterol Sulfate Conc Neb Soln (Albuterol Sulfate) 2.5 Mg/0.5 Ml Vial.neb 2.5 Mg NEB PRN Q4HRS PRN FENTANYL 12mcg/hr (Fentanyl) 1 Each Patch.td72 1 Patch TD Q72H Lidocaine Hcl Viscous (Lidocaine Hcl) 20 Mg/1 Ml Solution 10 Ml PO PRN Q2HRS PRN Nexium Capsule (Esomeprazole Magnesium) 40 Mg Capsule.dr 40 Mg PO BID Oxycodone Hcl 5 Mg Capsule 5 Mg PO PRN Q4HRS PRN Nystatin 100,000 Unit/1 Ml Oral.susp 5 Ml PO QID Clopidogrel (Clopidogrel Bisulfate) 75 Mg Tablet 75 Mg PO DAILY Vitamin D (Cholecalciferol (Vitamin D3)) 1,000 Unit Capsule 1 Cap PO DAILY Crestor (Rosuvastatin Calcium) 10 Mg Tablet 1 Tab PO DAILY Vitals/I & O Vital Sign - Last 24 Hours 07/05/16 07/05/16 07/05/16 07/05/16 15:16 15:46 16:53 18:18 Resp 18 18 18 Pulse Ox 96 96 96 96 O2 Delivery Nasal Cannula Nasal Cannula Nasal Cannula Nasal Cannula O2 Flow Rate 2.0 2.0 2.0 2.0 07/05/16 07/05/16 07/05/16 07/06/16 19:05 20:00 23:05 03:05 Temp 97.7 97.5 97.4 97.7 97.5 97.4 Pulse 96 85 91 Resp 16 18 18 B/P 115/62 141/80 113/74 Pulse Ox 96 99 97 O2 Delivery Nasal Cannula Nasal Cannula Nasal Cannula Nasal Cannula O2 Flow Rate 2.0 2.0 2.0 2.0 07/06/16 07/06/16 07/06/16 07/06/16 07:30 07:39 08:00 08:00 Temp 97.5 97.5 Pulse 100 Resp 20 18 18 B/P 121/79 Pulse Ox 97 97 97 O2 Delivery Nasal Cannula Nasal Cannula Nasal Cannula Nasal Cannula O2 Flow Rate 2.0 2.0 2.0 2.0 07/06/16 07/06/16 07/06/16 07/06/16 08:09 09:24 09:30 10:55 Temp 97.9 97.9 Pulse 100 87 Resp 17 20 B/P 121/79 128/65 Pulse Ox 97 99 97 O2 Delivery Nasal Cannula Nasal Cannula Nasal Cannula O2 Flow Rate 2.0 2.0 2.0 07/06/16 07/06/16 12:00 12:36 Resp 17 Pulse Ox 97 97 O2 Delivery Nasal Cannula Nasal Cannula O2 Flow Rate 2.0 2.0 Intake and Output 07/05/16 07/05/16 07/06/16 14:59 22:59 06:59 Intake Total 200 ml 50 ml Output Total 350 ml Balance -150 ml 50 ml CRYSTAL LUJAN MD Jul 06, 2016 15:17
[2016-07-06 15:30] VITALS: BP 114/65
[2016-07-06 19:15] VITALS: BP 125/69
[2016-07-06] MEDS ORDERED: ATORVASTATIN CALCIUM 40 MG TABLET. PO SCH (21:00)
[2016-07-06 23:46] VITALS: BP 161/82
[2016-07-07] MEDS: LIDO:MAALOX:BENADRYL 1:1:1 180 ML BOTTLE. PO PRN ×2 (01:08→08:49)
[2016-07-07 03:43] VITALS: BP 169/70
[2016-07-07 05:59] LABS: CALCIUM 8.8 mg/dL (8.5-10.1); CREATININE 0.6 mg/dL (0.6-1.0); GFR 96.7; POTASSIUM 4.7 mmol/L (3.5-5.1)
[2016-07-07 06:17] LABS: BASO % 0 % (0-3); EOS % 0 % (0-3); HEMOGLOBIN 9.1 g/dL (12.0-15.5); LYMPH # 0.5 x10^3/uL (1.0-4.8); LYMPH % 9 % (24-48); MEAN CORPUSCULAR HEMOGLOBIN 29 pg (25-35); MEAN CORPUSCULAR HGB CONC 34 g/dL (31-37); MEAN CORPUSCULAR VOLUME 86 fL (79-100); MONO % 3 % (0-9); NEUT % 88 % (31-73); PLATELET COUNT 384 x10^3/uL (140-400); RED BLOOD COUNT 3.16 x10^6/uL (3.50-5.40); RED CELL DISTRIBUTION WIDTH 19.4 % (11.5-14.5); WHITE BLOOD COUNT 5.4 x10^3/uL (4.0-11.0)
[2016-07-07 07:00] VITALS: BP 146/87
[2016-07-07] MEDS: PANTOPRAZOLE 40 MG TABLET. PO SCH (08:48)
[2016-07-07] MEDS: NYSTATIN 100,000 UNITS/ML 5 ML ORAL.SUSP. PO SCH ×2 (08:49→12:53)
[2016-07-07] MEDS: MORPHINE IR 15 MG TABLET PO PRN (08:49)
[2016-07-07] MEDS: methylPREDNISolone SOD SUCC PF 125 MG/2 ML VIAL. IV SCH (08:51)
[2016-07-07] MEDS: CLOPIDOGREL BISULFATE 75 MG TABLET PO SCH (08:51)
[2016-07-07] MEDS: CHOLECALCIFEROL (VITAMIN D3) 1,000 UNIT TABLET PO SCH (08:51)
[2016-07-07] MEDS: ASPIRIN ENTERIC COATED 81 MG TABLET.DR. PO SCH (08:51)
[2016-07-07] MEDS: MAGNESIUM OXIDE 400 MG TABLET PO SCH (08:51)
[2016-07-07] MEDS: CARVEDILOL 3.125 MG TABLET PO SCH (08:52)
--- NOTE | 2016-07-07 09:45 | PDOC ---
PULMONARY PROGRESS NOTES Vitals Vital Signs Date Time Temp Pulse Resp B/P Pulse Ox O2 Delivery O2 Flow Rate FiO2 07/07/16 08:52 78 169/70 07/07/16 08:49 Room Air 07/07/16 07:00 97.7 16 92 2.0 97.7 Lungs: Crackles, Other (Course breath sounds) Cardiovascular: S1, S2 Abdomen: Soft Extremities: No Edema Labs Laboratory Tests Test 07/06/16 06:00 07/07/16 04:41 White Blood Count 3.1x10^3/uL (4.0-11.0) 5.4x10^3/uL (4.0-11.0) Red Blood Count 3.27x10^6/uL (3.50-5.40) 3.16x10^6/uL (3.50-5.40) Hemoglobin 9.3g/dL (12.0-15.5) 9.1g/dL (12.0-15.5) Hematocrit 28.6% (36.0-47.0) 27.0% (36.0-47.0) Mean Corpuscular Volume 87fL (79-100) 86fL (79-100) Mean Corpuscular Hemoglobin 29pg (25-35) 29pg (25-35) Mean Corpuscular Hemoglobin Concent 33g/dL (31-37) 34g/dL (31-37) Red Cell Distribution Width 19.7% (11.5-14.5) 19.4% (11.5-14.5) Platelet Count 334x10^3/uL (140-400) 384x10^3/uL (140-400) Neutrophils (%) (Auto) 81% (31-73) 88% (31-73) Lymphocytes (%) (Auto) 16% (24-48) 9% (24-48) Monocytes (%) (Auto) 4% (0-9) 3% (0-9) Eosinophils (%) (Auto) 0% (0-3) 0% (0-3) Basophils (%) (Auto) 0% (0-3) 0% (0-3) Neutrophils # (Auto) 2.5x10^3uL (1.8-7.7) 4.8x10^3uL (1.8-7.7) Lymphocytes # (Auto) 0.5x10^3/uL (1.0-4.8) 0.5x10^3/uL (1.0-4.8) Monocytes # (Auto) 0.1x10^3/uL (0.0-1.1) 0.2x10^3/uL (0.0-1.1) Eosinophils # (Auto) 0.0x10^3/uL (0.0-0.7) 0.0x10^3/uL (0.0-0.7) Basophils # (Auto) 0.0x10^3/uL (0.0-0.2) 0.0x10^3/uL (0.0-0.2) Sodium Level 134mmol/L (136-145) 135mmol/L (136-145) Potassium Level 4.4mmol/L (3.5-5.1) 4.7mmol/L (3.5-5.1) Chloride Level 97mmol/L (98-107) 99mmol/L (98-107) Carbon Dioxide Level 30mmol/L (21-32) 31mmol/L (21-32) Anion Gap 7 (6-14) 5 (6-14) Blood Urea Nitrogen 14mg/dL (7-20) 21mg/dL (7-20) Creatinine 0.5mg/dL (0.6-1.0) 0.6mg/dL (0.6-1.0) Estimated GFR (Cockcroft-Gault) 119.3 96.7 Glucose Level 152mg/dL (70-99) 144mg/dL (70-99) Calcium Level 8.8mg/dL (8.5-10.1) 8.8mg/dL (8.5-10.1) Laboratory Tests Test 07/07/16 04:41 White Blood Count 5.4x10^3/uL (4.0-11.0) Red Blood Count 3.16x10^6/uL (3.50-5.40) Hemoglobin 9.1g/dL (12.0-15.5) Hematocrit 27.0% (36.0-47.0) Mean Corpuscular Volume 86fL (79-100) Mean Corpuscular Hemoglobin 29pg (25-35) Mean Corpuscular Hemoglobin Concent 34g/dL (31-37) Red Cell Distribution Width 19.4% (11.5-14.5) Platelet Count 384x10^3/uL (140-400) Neutrophils (%) (Auto) 88% (31-73) Lymphocytes (%) (Auto) 9% (24-48) Monocytes (%) (Auto) 3% (0-9) Eosinophils (%) (Auto) 0% (0-3) Basophils (%) (Auto) 0% (0-3) Neutrophils # (Auto) 4.8x10^3uL (1.8-7.7) Lymphocytes # (Auto) 0.5x10^3/uL (1.0-4.8) Monocytes # (Auto) 0.2x10^3/uL (0.0-1.1) Eosinophils # (Auto) 0.0x10^3/uL (0.0-0.7) Basophils # (Auto) 0.0x10^3/uL (0.0-0.2) Sodium Level 135mmol/L (136-145) Potassium Level 4.7mmol/L (3.5-5.1) Chloride Level 99mmol/L (98-107) Carbon Dioxide Level 31mmol/L (21-32) Anion Gap 5 (6-14) Blood Urea Nitrogen 21mg/dL (7-20) Creatinine 0.6mg/dL (0.6-1.0) Estimated GFR (Cockcroft-Gault) 96.7 Glucose Level 144mg/dL (70-99) Calcium Level 8.8mg/dL (8.5-10.1) Medications Active Scripts Medications Dose Route/Sig Days Date Category [Magic Mouthwash] 10 Ml SWSW TID PRN 07/04/16 Reported Senokot-S Tablet (Sennosides/Docusate Sodium) 1 Each Tablet 1 Each PO BID PRN 07/04/16 Reported Ipratropium [place] 0.2 Mg/1 Ml Solution 0.2 Mg IH PRN TID PRN 07/04/16 Reported Aspir 81 (Aspirin) 81 Mg Tablet.dr 81 Mg PO DAILY 07/04/16 Reported Carvedilol 3.125 Mg Tablet 3.125 Mg PO BIDWMEALS 07/04/16 Reported Albuterol Sulfate Conc Neb Soln (Albuterol Sulfate) 2.5 Mg/0.5 Ml Vial.neb 2.5 Mg NEB PRN Q4HRS PRN 07/04/16 Reported FENTANYL 12mcg/hr (Fentanyl) 1 Each Patch.td72 1 Patch TD Q72H 07/04/16 Reported Lidocaine Hcl Viscous (Lidocaine Hcl) 20 Mg/1 Ml Solution 10 Ml PO PRN Q2HRS PRN 07/04/16 Reported Nexium Capsule (Esomeprazole Magnesium) 40 Mg Capsule.dr 40 Mg PO BID 07/04/16 Reported Oxycodone Hcl 5 Mg Capsule 5 Mg PO PRN Q4HRS PRN 07/04/16 Reported Nystatin 100,000 Unit/1 Ml Oral.susp 5 Ml PO QID 07/04/16 Reported Clopidogrel (Clopidogrel Bisulfate) 75 Mg Tablet 75 Mg PO DAILY 07/04/16 Reported Vitamin D (Cholecalciferol (Vitamin D3)) 1,000 Unit Capsule 1 Cap PO DAILY 04/25/16 Reported Crestor (Rosuvastatin Calcium) 10 Mg Tablet 1 Tab PO DAILY 04/25/16 Reported Impression . 1. Acute respiratory failure, etiology unclear, suspect secondary to acute exacerbation of chronic obstructive pulmonary disease, rule out pulmonary embolus. 2. Recent diagnosis of nonsmall cell lung cancer, status post radiation to the right lower lobe, staging is unknown at this time. 3. Radiation-induced esophagitis leading to dysphagia. 4. [id number] protein malnutrition secondary to above. 5. Chronic anemia. 6. Coronary artery disease with low ejection fraction. Plan . V/Q NOT HELPFUL IN RULING IN OR OUT PE CLINICALLY I DON'T THINK THIS IS RELATED TO PE HOME IN AM OK KELSI YOUSSEF MD Jul 07, 2016 09:45
[2016-07-07 10:06] LABS: ANISOCYTOSIS SLIGHT; PLT ESTIMATE ADEQUATE (ADEQUATE)
[2016-07-07 11:00] VITALS: BP 120/61
[2016-07-07 12:13] VITALS: BP 120/61
[2016-07-07 12:14] VITALS: BP 120/61
[2016-07-07] MEDS ORDERED: MORP30TA83 PO (14:57)
[2016-07-07 15:00] VITALS: BP 104/52
--- NOTE | 2016-07-07 15:00 | PDOC3 ---
Discharge Summary Visit Information Date of Admission: Jul 04, 2016 Date of Discharge: Jul 07, 2016 Admitting Diagnosis Comment: Hypoxic, hypercapneic respi failure POA Non-small cell lung carcinoma dysphagia mod severe, malnutrition, BMI 17.6, Final Diagnosis Problems Medical Problems: (1) Acute respiratory failure with hypoxia Status: Acute (2) Dyspnea Status: Acute (3) Hypoxia Status: Acute (4) Lung cancer Status: Acute (5) Radiation esophagitis Status: Acute Brief Hospital Course Allergies Allergies Coded Allergies Type Severity Reaction Last Updated Verified Iodine and Iodide Containing Produc Allergy Intermediate 04/29/16 Yes ampicillin Allergy Intermediate 04/29/16 Yes sulfamethoxazole Allergy Intermediate 04/29/16 Yes trimethoprim Allergy Intermediate 04/29/16 Yes Vital Signs Vital Signs Date Time Temp Pulse Resp B/P Pulse Ox O2 Delivery O2 Flow Rate FiO2 07/07/16 14:17 Room Air 07/07/16 12:14 97.7 80 16 120/61 97 2.0 97.7 Lab Results Laboratory Tests Test 07/06/16 06:00 07/07/16 04:41 White Blood Count 3.1x10^3/uL (4.0-11.0) 5.4x10^3/uL (4.0-11.0) Red Blood Count 3.27x10^6/uL (3.50-5.40) 3.16x10^6/uL (3.50-5.40) Hemoglobin 9.3g/dL (12.0-15.5) 9.1g/dL (12.0-15.5) Hematocrit 28.6% (36.0-47.0) 27.0% (36.0-47.0) Mean Corpuscular Volume 87fL (79-100) 86fL (79-100) Mean Corpuscular Hemoglobin 29pg (25-35) 29pg (25-35) Mean Corpuscular Hemoglobin Concent 33g/dL (31-37) 34g/dL (31-37) Red Cell Distribution Width 19.7% (11.5-14.5) 19.4% (11.5-14.5) Platelet Count 334x10^3/uL (140-400) 384x10^3/uL (140-400) Neutrophils (%) (Auto) 81% (31-73) 88% (31-73) Lymphocytes (%) (Auto) 16% (24-48) 9% (24-48) Monocytes (%) (Auto) 4% (0-9) 3% (0-9) Eosinophils (%) (Auto) 0% (0-3) 0% (0-3) Basophils (%) (Auto) 0% (0-3) 0% (0-3) Neutrophils # (Auto) 2.5x10^3uL (1.8-7.7) 4.8x10^3uL (1.8-7.7) Lymphocytes # (Auto) 0.5x10^3/uL (1.0-4.8) 0.5x10^3/uL (1.0-4.8) Monocytes # (Auto) 0.1x10^3/uL (0.0-1.1) 0.2x10^3/uL (0.0-1.1) Eosinophils # (Auto) 0.0x10^3/uL (0.0-0.7) 0.0x10^3/uL (0.0-0.7) Basophils # (Auto) 0.0x10^3/uL (0.0-0.2) 0.0x10^3/uL (0.0-0.2) Sodium Level 134mmol/L (136-145) 135mmol/L (136-145) Potassium Level 4.4mmol/L (3.5-5.1) 4.7mmol/L (3.5-5.1) Chloride Level 97mmol/L (98-107) 99mmol/L (98-107) Carbon Dioxide Level 30mmol/L (21-32) 31mmol/L (21-32) Anion Gap 7 (6-14) 5 (6-14) Blood Urea Nitrogen 14mg/dL (7-20) 21mg/dL (7-20) Creatinine 0.5mg/dL (0.6-1.0) 0.6mg/dL (0.6-1.0) Estimated GFR (Cockcroft-Gault) 119.3 96.7 Glucose Level 152mg/dL (70-99) 144mg/dL (70-99) Calcium Level 8.8mg/dL (8.5-10.1) 8.8mg/dL (8.5-10.1) Segmented Neutrophils % 89% (35-66) Band Neutrophils % 8% (0-9) Lymphocytes % 2% (24-48) Monocytes % 1% (0-10) Platelet Estimate Adequate (ADEQUATE) Anisocytosis Slight Laboratory Tests Test 07/07/16 04:41 White Blood Count 5.4x10^3/uL (4.0-11.0) Red Blood Count 3.16x10^6/uL (3.50-5.40) Hemoglobin 9.1g/dL (12.0-15.5) Hematocrit 27.0% (36.0-47.0) Mean Corpuscular Volume 86fL (79-100) Mean Corpuscular Hemoglobin 29pg (25-35) Mean Corpuscular Hemoglobin Concent 34g/dL (31-37) Red Cell Distribution Width 19.4% (11.5-14.5) Platelet Count 384x10^3/uL (140-400) Neutrophils (%) (Auto) 88% (31-73) Lymphocytes (%) (Auto) 9% (24-48) Monocytes (%) (Auto) 3% (0-9) Eosinophils (%) (Auto) 0% (0-3) Basophils (%) (Auto) 0% (0-3) Neutrophils # (Auto) 4.8x10^3uL (1.8-7.7) Lymphocytes # (Auto) 0.5x10^3/uL (1.0-4.8) Monocytes # (Auto) 0.2x10^3/uL (0.0-1.1) Eosinophils # (Auto) 0.0x10^3/uL (0.0-0.7) Basophils # (Auto) 0.0x10^3/uL (0.0-0.2) Segmented Neutrophils % 89% (35-66) Band Neutrophils % 8% (0-9) Lymphocytes % 2% (24-48) Monocytes % 1% (0-10) Platelet Estimate Adequate (ADEQUATE) Anisocytosis Slight Sodium Level 135mmol/L (136-145) Potassium Level 4.7mmol/L (3.5-5.1) Chloride Level 99mmol/L (98-107) Carbon Dioxide Level 31mmol/L (21-32) Anion Gap 5 (6-14) Blood Urea Nitrogen 21mg/dL (7-20) Creatinine 0.6mg/dL (0.6-1.0) Estimated GFR (Cockcroft-Gault) 96.7 Glucose Level 144mg/dL (70-99) Calcium Level 8.8mg/dL (8.5-10.1) Brief Hospital Course Ms. Garcia is a 76 old female, follows with [facility] oncologist admitted for hypoxic, hypercapneic respi failure, has stage 4 lung CA Course here remarkable for pain and dysphagia, needing to start PO long acting, and to inc her duragesic patch All rxs priovided including tapering steroids DispO; Home ff up [facility] PRIEST Proc: video swallow - normal Consults: none Pt seen and examined Dc tiome 35 mins counselling etc Dw photo tech Information Condition at Discharge: Improved, Stable Disposition/Orders: D/C to Home Scheduled Aspirin (Aspir 81) 81 MG PO DAILY (Reported) Carvedilol (Carvedilol) 3.125 MG PO BIDWMEALS (Reported) Cholecalciferol (Vitamin D3) (Vitamin D) 1 CAP PO DAILY (Reported) Clopidogrel Bisulfate (Clopidogrel) 75 MG PO DAILY (Reported) Esomeprazole Magnesium (Nexium Capsule) 40 MG PO BID (Reported) Fentanyl (FENTANYL 12mcg/hr) 1 PATCH TD Q72H (Reported) Magnesium Oxide (Magnesium Oxide) 1 TAB PO BID (Reported) Nystatin (Nystatin) 5 ML PO QID (Reported) Rosuvastatin Calcium (Crestor) 1 TAB PO DAILY (Reported) Scheduled PRN ([Magic Mouthwash]) 10 ML SWSW TID PRN PRN PAIN (Reported) Albuterol Sulfate (Albuterol Sulfate Conc Neb Soln) 2.5 MG NEB PRN Q4HRS PRN PRN SHORTNESS OF BREATH (Reported) Ipratropium [place] (Ipratropium [place]) 0.2 MG IH PRN TID PRN PRN SHORTNESS OF BREATH (Reported) Lidocaine Hcl (Lidocaine Hcl Viscous) 10 ML PO PRN Q2HRS PRN PRN PAIN (Reported ) Oxycodone Hcl (Oxycodone Hcl) 5 MG PO PRN Q4HRS PRN PRN PAIN (Reported) Sennosides/Docusate Sodium (Senokot-S Tablet) 1 EACH PO BID PRN PRN CONSTIPATION (Reported) Discontinued Medications Felodipine (Felodipine Er) 1 TAB PO DAILY (Reported) Magnesium Oxide (Mag-Oxide) 1 TAB PO DAILY (Reported) Multivits-Min/Fa/Lycopene/Lut (Centrum Silver Tablet) 1 EACH PO DAILY (Reported ) Olmesartan Medoxomil (Benicar) 1 TAB PO DAILY (Reported) [place]-3 Fatty Acids/Fish Oil ([place] 3 Fish Oil Softgel) 1 EACH PO DAILY ( Reported) Ubidecarenone/Vit E Acetate (Co Q-10 100 Mg Softgel) 1 EACH PO DAILY (Reported) RUBIN BEGUM MD Jul 07, 2016 15:00
--- NOTE | 2016-07-07 15:38 | PDOC ---
Provider Note Provider Note DATE OF f/u: 07/07/2016 c/c: f/u of Lung cancer, stage III B now admitted with dyspnea. HISTORY OF PRESENT ILLNESS: This patient is a 76-year-old female who was initially admitted to [facility] in 04/2016 with exacerbation of COPD. CT scan showed spiculated soft tissue masses in the right upper lobe compatible with neoplastic disease. There was also evidence of substantial hilar and mediastinal lymphadenopathy. She was admitted to [facility] and during that admission, she underwent a bronchoscopy and biopsy on 05/05/2016. This revealed a friable tumor extending from the anterior surface of the distal trachea to terry with additional tumor at the orifice of right upper lobe segmental bronchus. Final pathology from the biopsy revealed squamous cell carcinoma, likely lung primary. She was started on radiation therapy on 05/06/2016 and it was completed on 06/24/2016. Her functional status was poor and hence she did not receive chemotherapy. She noted dyspnea of three to four days' duration. Her oxygen saturation dropped and hence she was sent to the Emergency Room on 07/04/2016 and she was subsequently admitted. She was evaluated by Dr. Melissa Blackwood. The patient underwent a chest x-ray on 07/04/2016 that revealed increased lung markings throughout the lungs bilaterally suggestive of chronic lung disease. She underwent a V/Q scan that revealed intermediate probability for pulmonary embolism on 07/05/2016. PAST MEDICAL HISTORY: Hypertension, coronary artery disease, COPD. REVIEW OF SYSTEMS: dyspnea better PHYSICAL EXAMINATION: GENERAL APPEARANCE: The patient is a 76-year-old female who is in no acute cardiorespiratory distress. CHEST: Bilaterally symmetrical. No crepitations or rhonchi heard. HEART: S1, S2 normal. ABDOMEN: Soft, nontender. IMPRESSION AND PLAN: 1. Stage III B known small cell lung cancer involving the right upper lobe hilar and mediastinal lymphadenopathy with biopsy on 05/05/2016 revealing squamous cell carcinoma. She underwent radiation therapy from 05/06/2016 to 06/24/2016. Her functional status continues to be poor and hence I did not initiate sequential chemotherapy. I would continue to monitor closely. 2. Dyspnea, may be related to chronic obstructive pulmonary disease, appreciate pulmonary consultation. V/Q scan was intermediate probability for pulmonary embolism. Management per Dr. Blackwood. I discussed with Dr. Blackwood and agree that it is not convincing for PE. 3. Anemia, chronic due to malignancy and radiation therapy and chronic disease. Hemoglobin is 9.1. ESTHELA AVITIA MD Jul 07, 2016 15:38
--- NOTE | 2016-07-07 16:22 | PDOC ---
Provider Note Provider Note [address] IIIB NSCLC s/ 61 Gy of right lung and mediastinal radiation without chemo at [facility] 05/06/16 to 06/24/16. Admitted here for SOB. likely due to exacerbation of underlying COPD. Now better and anxious to go home. CXR course bilateral lung markings seen with no local infiltrates or obvious malignancy seen,. VQ scan intermediate probability for PE While on treatment she had progressively severe burning sore throat not responsive to triple mix or nystatin. Now a bit better. On fentanyl patch 25 mcg/hr and oral breakthough narcotics. Able to eat some formed and soft food when pain well medicated. Impression: Severe radiation esophagitis. Doubt other etiology. Recommend increasing baseline narcotic coverage if tolerated to > 25 mcg/hr. As pain is a bit better since completing treatment already, I did not see a need for upper endoscopy. Post treatment f/u planned at with post treatment chest CT in 2 weeks. General discussion with patient. ALMA ROSA DE JESUS MD Jul 07, 2016 16:22
--- NOTE | 2016-07-09 04:38 | CONS ---
DATE OF CONSULTATION: 07/07/2016 REFERRING PHYSICIAN: Dr. Lara Gates. 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 She completed 61 Gy of radiation alone at [facility] on 06/24/2016. She was admitted here for increasing shortness of breath and severe postradiation esophagitis. We were asked to see her regarding symptom management. 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 She underwent lumpectomy and adjuvant radiation to 50 Gy to the right breast and 60 Gy to the boost site completed here in 02/1991. More recently, she was hospitalized here in 04/2016 for exacerbation of underlying COPD. CT scan of the chest showed 2 spiculated masses in the right upper lobe, associated mediastinal adenopathy. She was scheduled for VATS with lymph node sampling here. She then went to at which time she underwent bronchoscopy and biopsy of friable tumor at the orifice of the right upper lobe and anterior surface of the distal trachea revealing squamous cell carcinoma. She received 61 Gy of radiation and alone, she was felt to be a poor candidate for concurrent chemotherapy. She received treatment from 05/06/2016 through 06/24/2016. While on treatment, she had progressive radiation esophagitis with difficulty swallowing. This was sequentially treated with Carafate, triple mix and Nystatin. She continues to have ongoing severe sore throat, which is somewhat better overall and can be partially improved with oral narcotics along with ongoing use of 25 mcg/hour fentanyl patch. She was also admitted here for increasing shortness of breath due the underlying exacerbation of her COPD, now improved with medical management. She is anxious to be discharged later today. She did undergo chest x-ray on 07/04/2016 which revealed coarse lung markings throughout both lungs bilaterally, likely due to chronic lung disease, no definite infiltrates seen. VQ scan on 07/05/2016 revealed intermediate probability of pulmonary embolus. PAST MEDICAL HISTORY: Remarkable for chronic obstructive lung disease and lung cancer as summarized above. She also has a history of peripheral vascular disease, coronary artery disease, carotid stenosis. She has had previous carotid endarterectomy. SOCIAL HISTORY: , 6 years, lives with her older son, daughter lives across the street. was a career officer. She grew up in [place]. He ultimately retired in [place] where she currently lives. She smoked up to a pack a day for 65 years and did quit smoking. FAMILY HISTORY: Father from some form of malignancy. ALLERGIES: IODINE, AMPICILLIN, SULFA, AND TRIAMTERENE. MEDICATIONS: See hospital list. PHYSICAL EXAMINATION: GENERAL: Revealed a frail-appearing, thin woman, animated in discussion, alert and appropriate, no acute distress. HEENT: No scleral icterus. LYMPH NODES: She had no palpable cervical or supraclavicular adenopathy. HEART: Regular. LUNGS: Clear. ABDOMINAL: Unremarkable. EXTREMITIES: Revealed no clubbing, cyanosis or edema. Her back did reveal tanning and peeling of her skin on the left side, reflecting her prior treatment. . LABORATORY STUDIES: From 07/04/2016, hemoglobin 9.5, white count 5700, platelet count 345,000. Chemistry panel revealed normal electrolytes, creatinine 0.7, normal liver function tests. ASSESSMENT AND PLAN: In summary, my impression is that of resolving radiation esophagitis, there may be some role in increasing her fentanyl patch from 25 mcg per hour to 37 or to 50 mcg per hour to give her more continuity in narcotic coverage for this. She has already had triple mix and nystatin in the past. As her symptoms are resolving, I did not see a need for upper endoscopy. I reviewed this in detail with the patient. She was pleased to be leaving the hospital soon. She anticipates followup at with followup postradiation CT imaging in 2 weeks. Thank you for allowing us to participate in her evaluation. ALMA ROSA DE JESUS MD DR: GOMEZ/yonathan JOB#: [id number] / [id number] ESTHELA Arboleda MD
== END 2016-07-07 16:30 | disposition home or self-care (01) | DRG 189 ==
LOC: ER 16:16 → OBSVTOIN 21:27 → 6 SOUTH 21:27
PROVIDERS: ADMIT Internal Medicine Hematology & Oncology; ATTEND Internal Medicine Hematology & Oncology
DX: J96.01 Acute respiratory failure with hypoxia (principal); E43 Unspecified severe protein-calorie malnutrition; J44.1 Chronic obstructive pulmonary disease with (acute) exacerbation; Z68.1 Body mass index [BMI] 19.9 or less, adult; K20.8 Other esophagitis; J96.02 Acute respiratory failure with hypercapnia; E78.00 Pure hypercholesterolemia, unspecified; I10 Essential (primary) hypertension; D63.0 Anemia in neoplastic disease; I25.10 Atherosclerotic heart disease of native coronary artery without angina pectoris; I73.9 Peripheral vascular disease, unspecified; Z80.1 Family history of malignant neoplasm of trachea, bronchus and lung; Z85.3 Personal history of malignant neoplasm of breast; Z86.711 Personal history of pulmonary embolism; Z88.8 Allergy status to other drugs, medicaments and biological substances; Z87.891 Personal history of nicotine dependence; Z92.3 Personal history of irradiation; Z88.1 Allergy status to other antibiotic agents; Z85.118 Personal history of other malignant neoplasm of bronchus and lung
CPT/HCPCS: 36415; 71010; 78582; 80048; 80076; 83690; 83880; 84484; 85007; 85027; 87804; 93005; 94250; 94620; 94640; 94760; 96374; A9540; A9558; J1170; J2270; J2930; J7620